=== PATIENT | male | born 1955 | race African-American/Black ===

== ENCOUNTER 2019-03-10 14:59 | Inpatient (IN) ==
[2019-03-10] MEDS ORDERED: LEVALBUTEROL HCL 1.25 MG/3 ML NEB NEB STA (15:37)
[2019-03-10 16:09] LABS: Basophils # (auto) 0.03 K/uL (0-0.2); Basophils % (auto) 0.5 %; Eosinophils # (auto) 0.19 K/uL (0-0.5); Eosinophils % (auto) 3.4 %; Hematocrit (blood only) 27.5 % (42-52); Hemoglobin 8.2 g/dL (14.0-18.0); Immature Granulocytes # (auto) 0.01 K/uL (0.00-0.02); Immature Granulocytes % (auto) 0.2 %; Lymphocytes # (auto) 1.37 K/uL (1.2-3.4); Lymphocytes % (auto) 24.4 %; Mean Corpuscular Hemoglobin 23.3 pg (25-34); Mean Corpuscular Hgb Conc 29.8 g/dL (32-36); Mean Corpuscular Volume 78.1 fL (80-100); Mean Platelet Volume 9.7 fL (7.4-10.4); Monocytes % (auto) 8.9 %; Neutrophils # (auto) 3.52 K/uL (1.4-6.5); Neutrophils % (auto) 62.6 %; Platelet Count 226 K/uL (130-400); RDW Coefficient of Variation 15.6 % (11.5-14.5); RDW Standard Deviation 45.1 fL (36.4-46.3); Red Blood Count 3.52 M/uL (4.7-6.1); White Blood Count 5.62 K/uL (4.8-10.8)
--- NOTE | 2019-03-10 16:15 | XRay Report ---
XR chest 1V portable CLINICAL HISTORY: 63 years-old Male presenting with SOB. TECHNIQUE: Portable upright AP view of the chest was obtained. COMPARISON: None. FINDINGS: Atherosclerosis of the aortic arch. Cardiac silhouette enlarged. Mild pulmonary vascular prominence. Interstitial prominence with suggestion of interlobular septal thickening. Bibasilar opacities greate r on the left. It is difficult to exclude left hemidiaphragm elevation as a potential cause for this appearance on the left. No large effusion or pneumothorax. IMPRESSION: 1. Cardiomegaly with volume overload and congestive change. Developing pulmonary edema suspected. 2. Opacity at the left lung base could relate to edema, atelectasis, or left hemidiaphragm elevation . PA and lateral views may better demonstrate this abnormality. 3. 4. 5. Electronically signed by: Dionte Saha M.D. 6. 03/10/2019 4:13 PM
[2019-03-10 16:23] LABS: Partial Thromboplastin Ratio 0.9; Partial Thromboplastin Time 25.2 Seconds (21.0-31.0); Prothrombin Time 10.3 Seconds (9.0-12.0)
[2019-03-10 16:25] LABS: Alanine Aminotransferase 29 U/L (12-78); Albumin Level 3.4 gm/dl (3.4-5.0); Aspartate Aminotransferase 17 U/L (15-37); BUN Creatinine Ratio 14.4 (10-20); Blood Urea Nitrogen 18 mg/dl (7-18); Calcium 8.9 mg/dl (8.5-10.1); Carbon Dioxide 27 mmol/L (21-32); Chloride 107 mmol/L (98-107); Creatinine Clr Calc Pharmacy 82.2 ml/min; Est GFR (African American) 70.4; Est GFR (Non-African American) 60.7; Glucose 117 mg/dl (70-99); Potassium 3.9 mmol/L (3.5-5.1); Sodium 139 mmol/L (136-145)
[2019-03-10 16:30] LABS: Albumin Globulin Ratio 0.8 (0.9-2); Alkaline Phosphatase 68 U/L (45-117); Bilirubin,Total 0.3 mg/dl (0.2-1); Globulin 4.4 gm/dl (2.5-4.0); Total Protein 7.8 gm/dl (6.4-8.2); Troponin I < 0.015 ng/ml (0-0.045)
[2019-03-10] MEDS ORDERED: LABETALOL HCL IV 5 MG/ML 20ML IV STA (17:03)
[2019-03-10 17:11] LABS: NT Pro B Type Natriuretic Pept 96 pg/ml (0-900)
[2019-03-10] MEDS ORDERED: PANTOprazole 80 MG in DEXTROSE 5% 100 ML IV SCH (17:15)
[2019-03-10] MEDS ORDERED: METOPROLOL TARTRATE 1 MG/ML VIAL IV ONE (17:29)
[2019-03-10] MEDS ORDERED: METOPROLOL TARTRATE 1 MG/ML VIAL IV STA (17:29)
[2019-03-10] MEDS ORDERED: SODIUM CHLORIDE 0.9% 1000ML 500 ML IV ONE (17:29)
--- NOTE | 2019-03-10 18:22 | Emergency Department Note ---
Entered by Meghann Disla acting as a scribe for Jl Jacome MD History of Present Illness General Chief complaint: Shortness of Breath/Dyspnea Stated complaint: SOB COUGH CHEST TIGHTNESS Time Seen by Provider: 03/10/19 15:27 Source: patient Mode of arrival: other (custodial guards ) History of Present Illness Provider complaint: shortness of breath Onset (ago): month(s) 2 Location: chest Pain Consistency: + other (worsening ) Quality: + other ("tightness") Relieved By: + other (inhaler ) Exacerbated By: + movement Associated symptoms: + cough The patient is a 63 year old male with a PMHX of 3 heart attacks, 3 strokes, and shortness of breath, who presents to the ED with complaints of a worsening of shortness of breath for 2-3 months now. The patient states that it feels a "tightness in his throat." The patient states that he has a cough that produces phlegm. The patient states that he recently stopped smoking. He states that his shortness of breath is exacerbated by movement. The patient states that he has never been told that he is anemic. He states that he has never been told that he has COPD or asthma. He states that he was given an inhaler and finds slight relief. The patient also states that his heart feels like it is "jumping around in his chest." The patient states that his bowel movements are normal. The pa tient denies using oxygen. The patient denies a history of a blood clot in his lungs or legs. The patient states that about 1 year ago he had hematuria and they took an US with no conclusive results. He states that he is not sure if there has been bleeding anywhere else in his GI tract. The patients chart states that the patient was sent here from [facility] s medical team for worsening shortness of breath and a cough for 2-3 months now. The chart states that the patient has a history of 3 heart attacks and 3 strokes. The patients Hemoglobin was 8.8 on a recent test. Home Medications Home Medications Medication Instructions Recorded Confirmed Type aspirin [Aspir-81] 81 mg PO DAILY 03/10/19 03/10/19 History azelastine 2 spray INTRANASAL BID 03/10/19 03/10/19 History cetirizine 10 mg PO DAILY 03/10/19 03/10/19 History cholecalciferol (vitamin D3) 400 unit PO DAILY 03/10/19 03/10/19 History [Vitamin D3] diltiazem HCl 240 mg PO DAILY 03/10/19 03/10/19 History guaifenesin [Mucosa] 400 mg PO BID PRN 03/10/19 03/10/19 History levalbuterol tartrate [Xopenex HFA] 1 puff INHALATION Q6H PRN 03/10/19 03/10/19 History omeprazole 20 mg PO DAILY 03/10/19 03/10/19 History pentoxifylline 400 mg PO TID 03/10/19 03/10/19 History pravastatin 20 mg PO HS 03/10/19 03/10/19 History Allergies Allergy/AdvReac Type Severity Reaction Status Date / Time No Known Allergies Allergy Unverified 03/10/19 16:11 Past Med/Surg History Medical History GERD (gastroesophageal reflux disease) (Chronic) Peripheral arterial disease (Chronic) Cerebrovascular disease (Chronic) Coronary artery disease (Chronic) Hypertension (Chronic) GERD (gastroesophageal reflux disease) (Chronic) Hypertension (Chronic) WA (myocardial infarction) (Chronic) Pt reports 3 WA's, but no cardiac cath or revascularization. Stroke (Chronic) Surgical History Status post hernia repair Family History Mother Hypertension Diabetes Sister Diabetes Sister Diabetes Other No significant family history Social History Beliefs That Will Affect Care: None and Gnosticist Gnosticist Beliefs: Mandaeism current occupational status: other current occupation: custodial Feels Safe at Home: Yes Smoking Status: Former smoker Hx Alcohol Use: No Hx Substance Use: No Review of Systems See HPI for pertinent positives & negatives. and A total of 10 systems reviewed and were otherwise negative Physical Exam Vital Signs Vital Signs - 24 hr 03/10/19 15:05 03/10/19 15:50 03/10/19 16:00 Temperature 36.8 C Temperature Source Oral Sepsis Recent Fever Within 48 Hours No Sepsis New/Unexplained Change in Mental Status No Sepsis Action Taken by Nursing No Action Required Pulse Rate 55 L Pulse Rate [Left Finger] 81 Pulse Rate from SpO2 Sensor Pulse Rhythm [Left Finger] Pulse Strength [Left Finger] Respiratory Rate 20 16 Respiratory Effort / Characteristics Non-Labored Spontaneous Respiratory Depth Respiratory Pattern Blood Pressure 191/96 H Blood Pressure [Right Arm] Blood Pressure Mean 127 Blood Pressure Mean [Right Arm] Blood Pressure Position [Right Arm] Pulse Oximetry 99 95 Oxygen Delivery Method Room Air Room Air Room Air 03/10/19 16:05 03/10/19 16:30 03/10/19 17:00 Temperature Temperature Source Sepsis Recent Fever Within 48 Hours Sepsis New/Unexplained Change in Mental Status Sepsis Action Taken by Nursing Pulse Rate 103 H 102 H Pulse Rate [Left Finger] 92 H Pulse Rate from SpO2 Sensor 101 H 97 H Pulse Rhythm [Left Finger] Regular Pulse Strength [Left Finger] Normal Respiratory Rate 20 20 18 Respiratory Effort / Characteristics Non-Labored Spontaneous Respiratory Depth Normal Respiratory Pattern Regular Blood Pressure 170/100 H 163/126 H Blood Pressure [Right Arm] 162/95 H Blood Pressure Mean 123 138 Blood Pressure Mean [Right Arm] 117 Blood Pressure Position [Right Arm] Sitting Pulse Oximetry 98 98 93 Oxygen Delivery Method Room Air 03/10/19 17:03 03/10/19 17:23 03/10/19 17:30 Temperature Temperature Source Sepsis Recent Fever Within 48 Hours Sepsis New/Unexplained Change in Mental Status Sepsis Action Taken by Nursing Pulse Rate 89 134 H 132 H Pulse Rate [Left Finger] Pulse Rate from SpO2 Sensor 91 H 134 H 133 H Pulse Rhythm [Left Finger] Pulse Strength [Left Finger] Respiratory Rate 23 16 24 Respiratory Effort / Characteristics Respiratory Depth Respiratory Pattern Blood Pressure 181/104 H 133/95 160/110 H Blood Pressure [Right Arm] Blood Pressure Mean 129 107 126 Blood Pressure Mean [Right Arm] Blood Pressure Position [Right Arm] Pulse Oximetry 98 97 97 Oxygen Delivery Method 03/10/19 17:33 03/10/19 17:47 Temperature Temperature Source Sepsis Recent Fever Within 48 Hours Sepsis New/Unexplained Change in Mental Status Sepsis Action Taken by Nursing Pulse Rate 133 H 76 Pulse Rate [Left Finger] Pulse Rate from SpO2 Sensor 77 Pulse Rhythm [Left Finger] Pulse Strength [Left Finger] Respiratory Rate 19 Respiratory Effort / Characteristics Respiratory Depth Respiratory Pattern Blood Pressure 160/110 H 170/88 H Blood Pressure [Right Arm] Blood Pressure Mean 115 Blood Pressure Mean [Right Arm] Blood Pressure Position [Right Arm] Pulse Oximetry 97 Oxygen Delivery Method GENERAL: Patient is in no acute distress. HEENT: No acute trauma, normocephalic atraumatic, mucous membranes moist, no nasal congestion, no scleral icterus. NECK: No stridor, no adenopathy, no meningismus, trachea is midline. LUNGS: Diminished breaths sounds bilaterally, equal breath sounds, no respiratory distress, no wheezing or rhonchi. HEART: Irregular rhythm, mildly tachycardic, has a 2/6 systolic murmur heard best at the right sternal border. ABDOMEN: Soft, nontender, bowel sounds positive, no hernias, no peritonitis. EXTREMITIES: No cyanosis or edema, full range of motion of all the joints without pain or difficulty, no signs for acute trauma. NEUROLOGIC: Oriented x 3, no acute motor or sensory deficits, no focal weakness. SKIN: No rash, no jaundice, no diaphoresis. Rectal: Dark almost black stool, heme positive. Course 1533: Past medical records reviewed. The patient was evaluated in room B6. A complete history and physical exam was performed. 1657: I reevaluated the patient at this time and he is resting comfortably. I performed a rectal exam on the patient. 1729: I reevaluated the patient at this time and he verbalized that he felt like his heart was racing. I ordered a repeat EKG on the patient that showed he was in SVT. 1742: I discussed the patient's case with Elvia Denton. She informed me that Dr. Luna, [facility], agreed to evaluate the patient for further management. 1751: I reevaluated the patient at this time and his SVT had broken. I updated him on his treatment plan. He verbally agreed and understood. Consultations Consultation #1: I discussed the patient's case with Elvia Denton. She informed me that Dr. Luna, [facility], agreed to evaluate the patient for further management. Time: 17:42 Administered Medications Pantoprazole Sodium 40 mg/ (Dextrose) 100 mls @ 20 mls/hr IV Q5H [facility] Stop: 04/09/19 17:29 Last Admin: 03/10/19 18:46 Dose: 20 mls/hr Documented by: [id number] Discontinued Medications Pantoprazole Sodium 80 mg/ (Dextrose) 120 mls @ 480 mls/hr IV TODAY@1715 PRABHJOT Stop: 03/10/19 17:29 Last Infusion: 03/10/19 18:47 Dose: 0 mls/hr Documented by: [id number] Admin: 03/10/19 18:23 Dose: 480 mls/hr Documented by: [id number] Sodium Chloride (Nss 1000ml) 500 mls @ 999 mls/hr IV .Q31M ONE Stop: 03/10/19 17:59 Last Infusion: 03/10/19 18:46 Dose: 0 mls/hr Documented by: [id number] Admin: 03/10/19 17:33 Dose: 999 mls/hr Documented by: [id number] Labetalol HCl (Normodyne) 10 mg IV NOW STA Stop: 03/10/19 17:04 Last Admin: 03/10/19 17:06 Dose: 10 mg Documented by: [id number] Cosigned by: [id number] Levalbuterol HCl (Xopenex 1.25mg/3ml Neb) 1.25 mg NEB NOW STA Stop: 03/10/19 15:38 Last Admin: 03/10/19 15:49 Dose: 1.25 mg Documented by: [id number] Metoprolol Tartrate (Lopressor) Confirm Administered Dose 5 mg IV .STK-MED ONE Stop: 03/10/19 17:30 Last Admin: 03/10/19 18:23 Dose: Not Given Documented by: [id number] Metoprolol Tartrate (Lopressor) 5 mg IV NOW STA Stop: 03/10/19 17:30 Last Admin: 03/10/19 17:33 Dose: 5 mg Documented by: [id number] Medical Decision Making Differential Diagnosis Differential diagnoses include but are not limited to angina, WA, CHF, pneumonia, bronchitis, COPD, anemia, electrolyte imbalance, PE. Medical Records Attestation: I reviewed the patient's medical records. Home Medications Current Medication List: was personally reviewed by me Laboratory Data Attestation: I reviewed the patient's lab results. Result diagrams: 03/10/19 15:47 03/10/19 15:47 Lab Results 03/10/19 03/10/19 03/10/19 Range/Units 15:47 15:47 15:47 WBC 5.62 (4.8-10.8) K/uL RBC 3.52 L (4.7-6.1) M/uL Hgb 8.2 L (14.0-18.0) g/dL Hct 27.5 L (42-52) % MCV 78.1 L (80-100) fL MCH 23.3 L (25-34) pg MCHC 29.8 L (32-36) g/dL RDW Std Deviation 45.1 (36.4-46.3) fL RDW Coeff of Ruba 15.6 H (11.5-14.5) % Plt Count 226 (130-400) K/uL MPV 9.7 (7.4-10.4) fL Immature Gran % (Auto) 0.2 % Neut % (Auto) 62.6 % Lymph % (Auto) 24.4 % [place] % (Auto) 8.9 % Eos % (Auto) 3.4 % Baso % (Auto) 0.5 % Immature Gran # (Auto) 0.01 (0.00-0.02) K/uL Neut # (Auto) 3.52 (1.4-6.5) K/uL Lymph # (Auto) 1.37 (1.2-3.4) K/uL [place] # (Auto) 0.50 (0.11-0.59) K/uL Eos # (Auto) 0.19 (0-0.5) K/uL Baso # (Auto) 0.03 (0-0.2) K/uL PT 10.3 (9.0-12.0) Seconds INR 1.0 (0.9-1.1) APTT 25.2 (21.0-31.0) Seconds PTT Ratio 0.9 Sodium 139 (136-145) mmol/L Potassium 3.9 (3.5-5.1) mmol/L Chloride 107 (98-107) mmol/L Carbon Dioxide 27 (21-32) mmol/L Anion Gap 5.0 (3-11) BUN 18 (7-18) mg/dl Creatinine 1.26 (0.6-1.4) mg/dl Est Cr Clr Drug Dosing 82.2 ml/min Est GFR ( Amer) 70.4 Est GFR (Non-Af Amer) 60.7 BUN/Creatinine Ratio 14.4 (10-20) Glucose 117 H (70-99) mg/dl Calcium 8.9 (8.5-10.1) mg/dl Magnesium 2.0 (1.8-2.4) mg/dl Total Bilirubin 0.3 (0.2-1) mg/dl AST 17 (15-37) U/L ALT 29 (12-78) U/L Alkaline Phosphatase 68 (45-117) U/L Troponin I < 0.015 (0-0.045) ng/ml NT-Pro-B Natriuret Pep 96 (0-900) pg/ml Total Protein 7.8 (6.4-8.2) gm/dl Albumin 3.4 (3.4-5.0) gm/dl Globulin 4.4 H (2.5-4.0) gm/dl Albumin/Globulin Ratio 0.8 L (0.9-2) Imaging Data Radiologist's Impression: Radiology results as stated below per my review and the radiologist's interpretation: XR chest 1V portable CLINICAL HISTORY: 63 years-old Male presenting with SOB. TECHNIQUE: Portable upright AP view of the chest was obtained. COMPARISON: None. FINDINGS: Atherosclerosis of the aortic arch. Cardiac silhouette enlarged. Mild pulmonary vascular prominence. Interstitial prominence with suggestion of interlobular septal thickening. Bibasilar opacities greater on the left. It is difficult to exclude left hemidiaphragm elevation as a potential cause for this appearance on the left. No large effusion or pneumothorax. IMPRESSION: 1. Cardiomegaly with volume overload and congestive change. Developing pulmonary edema suspected. 2. Opacity at the left lung base could relate to edema, atelectasis, or left hemidiaphragm elevation. PA and lateral views may better demonstrate this abnormality. 5. Electronically signed by: Dionte Saha M.D. 6. 03/10/2019 4:13 PM ECG Data Attestation: I personally reviewed and interpreted this ECG as follows: Indication: SOB/dyspnea Rate (beats per minute): 103 Rhythm: sinus tachycardia Findings: + other (QTc 416), + nonspecific-ST abn (diffuse and nonspecific) and + PAC; no ST elevation and no acute ischemic change Comparison ECG Date: from (2nd EKG 03/10/19 at 17:30) Change: the following changes noted (SVT) Additional Comments: Repeat EKG 03/10/19 at 17:30: SVT, rate of 135, QTc of 477, no st elevation, no acute ischemic change, nonspe cific ST change Blood Pressure Blood Pressure Findings: Elevated blood pressure Blood Pressure Disposition: further management by hospitalist MDM Narrative There is no leukocytosis. The hemoglobin is low at 8.2, a rectal exam was performed, stool was dark in color and heme positive. There was a normal platelet count. No coagulopathy. No significant electrolyte abnormality or kidney failure. No worrisome liver enzyme elevation. EKG showed a sinus rhythm with PACs. Cardiac enzyme testing x1 was not consistent with acute cardiac injury. Chest x-ray shows what appears to be some atelectasis on the left. There was no true pneumonia. No pneumothorax. No concerning CHF. BNP was not elevated making CHF less likely. The patient was given IV labetalol for a higher blood pressure. He received a Xopenex neb. He was placed on a Protonix drip after an IV Protonix bolus. During the patient's stay, he complained of tachycardia/palpitations. A repeat EKG was performed showing an SVT in the 130s. Patient received a 500 cc saline bolus and 5 mg of IV Lopressor. This broke the SVT. Patient does require a hospital stay. He has a GI bleed. He is anemic. He may require a blood transfusion if the hemoglobin drops any further. He did have a bout of SVT. I did speak to the patient and the guards, case management has been involved. The on-call hospitalist was consulted. Impression & Plan SOB (shortness of breath), Weakness, Anemia, GI bleed, Hypertension, SVT (supraventricular tachycardia) Critical Care Time Critical Care Time: Yes Total Critical Care Time: 42 I have personally spent 42 minutes of critical care time in the direct management of this patient. This includes bedside care, interpretation of diagnostic studies, and testing, discussion with consultants, patient, and family members, and other required patient management activities. This 42 minutes is in excess of all separately billable procedures. Discharge Plan Visit Data *Final* Discharge Date/Time: 03/10/19 18:52 Chief Complaint: Shortness of Breath/Dyspnea Stated Complaint: SOB COUGH CHEST TIGHTNESS ED Provider: Jl Jacome Discharge Problem: SOB (shortness of breath), Weakness, Anemia, GI bleed, Hypertension, SVT (supraventricular tachycardia) Patient Disposition: Admitted As Inpatient Discharge Instructions Interventions: ED Discharge Assessment Last Done: 03/10/19 18:52 Discharge Problem: Anemia Qualifiers: Anemia type: unspecified type Qualified Code(s): D64.9 - Anemia, unspecified GI bleed Qualifiers: GI bleed type/associated pathology: unspecified gastrointestinal hemorrhage type Qualified Code(s): K92.2 - Gastrointestinal hemorrhage, unspecified Hypertension Qualifiers: Hypertension type: unspecified Qualified Code(s): I10 - Essential (primary) hypertension The scribe's documentation has been prepared under my direction and personally reviewed by me in its entirety. I confirm that the note above accurately reflects all work, treatment, procedures, and medical decision making performed by me.
[2019-03-10] MEDS: PANTOprazole 40 MG in DEXTROSE 5% 100 ML IV SCH ×2 (18:46→23:56)
--- NOTE | 2019-03-10 19:01 | History & Physical Report ---
Date of Service March 10, 2019 Assessment & Plan (1) Dyspnea: Patient reports increasing dyspnea on exertion over the past 2 months. There may be several contributing factors. He reports a history of previous myocardial infarctions; may be having myocardial ischemia with exertion. Chest x-ray shows some pulmonary vascular congestion; possible CHF. Blood pressure in ED as high as 160/140; may have hypertensive heart disease. Experiences frequent tachypalpitations and was noted to have SVT in the ED. Former heavy smoker, may have COPD. Abnormal chest x-ray consistent with hiatal hernia, but need to rule out other pathology. Anemia, as well, may be contributing to symptoms. Check echocardiogram and pro-BNP. Consult Cardiology. Resume diltiazem for better control of hypertension and arrhythmias. Check PA lateral chest films when able. Check PFTs when able. Management of anemia as discussed below. (2) Abnormal chest xray: Portable chest x-ray shows a left retrocardiac density, possible hiatal hernia. Check repeat imaging with PA and lateral films once medical status has stabilized. (3) SVT (supraventricular tachycardia): Developed narrow complex tachyarrhythmia in ED consistent with SVT. Converted to normal sinus rhythm after administration of intravenous metoprolol. Serum potassium 3.9. Serum magnesium 2.0. Patient reports frequent tachypalpitations. Prescribed diltiazem, but not recently taking it. Resume diltiazem. Check TSH. Cardiac monitoring. (4) GI bleed: Stools heme positive in ED. Hemoglobin 8.2 with an MCV of 78. Microcytosis suggests chronic GI blood loss. Takes aspirin on a regular basis. Hold aspirin. IV pantoprazole. Consult GI. Follow H&H. (5) Anemia: Hemoglobin 8.2 with an MCV of 78. Takes aspirin on a regular basis. May have both acute blood loss anemia and chronic GI blood loss. No indication for transfusion per current guidelines, but consider if hemoglobin falls below 7-8. Monitor H&H. Check iron studies. (6) Coronary artery disease: Pt reports 3 MIs in the past, but never had a cardiac catheterization or revascularization. Obtain old records if possible. Hold aspirin until active GI bleeding has resolved. Resume diltiazem for ischemic heart disease, hypertension, and tachyarrhythmias. Continue statin. (7) Cerebrovascular disease: Patient reports history of 2 strokes in the past. No residual deficits. Details of events not available. Obtain old records if possible. Hold aspirin until GI bleed resolved. Continue statin. (8) Hypertension: Has been prescribed diltiazem, but not taking it recently because he felt that blood pressures running too low. Resume diltiazem, but with a modified schedule of diltiazem CD 120 mg BID. Follow and titrate therapy. (9) Peripheral arterial disease: Hold aspirin and pentoxifylline until GI bleed has resolved. (10) GERD (gastroesophageal reflux disease): Continue PPI. (11) DVT prophylaxis: No anticoagulants because of GI bleeding. SCDs. Ambulate as able. (12) Discharge planning issues: Anticipated return to [facility] under the care of the medical team there. Need background information from previous hospitalizations at [facility] in [place]. Old records to be requested. History of Present Illness Chief Complaint: shortness of breath Primary Care Provider: [facility] 63 YO male who is incarcerated at [facility]. History of 3 FL's per patient's history. Details not available. First 2 events were managed at [facility] about 10 years ago. Third episode was about 2 years ago, managed at the residential. Patient states that he never had a cardiac cath or revascularization. History of stroke in the past. Details not available. Other medical problems include hypertension, peripheral vascular disease, GERD. Former 2 PPD smoker. Experiencing dyspnea on exertion over past 2 months, recently worse. Sometimes dyspnea associated with mild substernal chest pain; sometimes with palpitations. Occasional cough, sometimes productive of white sputum. Has had intermittent palpitations for some time. Prescribed diltiazem, but felt that current dose of 240 mg daily was too much and he has not taken it for some time. Takes aspirin 81 mg daily because of history of ischemic heart disease and stroke. Takes a couple extra aspirins when he experiences palpitations which seems to help. Chest x-ray at [facility] on 03/06/19 showed normal cardiac silhouette, pulmonary vascular congestion, retrocardiac density felt to be consistent with hiatal hernia. Brought to ED today because of worsening dyspnea on exertion. No chest pain. No fever. Cough unchanged. Cardiac rhythm in ED initially was sinus tachycardia. BP was elevated. Patient received IV labetalol. Subsequently developed narrow complex tachycardia @ 130 / min consistent with SVT. Received metoprolol 5 mg IV and converted to sinus rhythm. Allergies Allergy/AdvReac Type Severity Reaction Status Date / Time No Known Allergies Allergy Unverified 03/10/19 16:11 Home Medications Home Medications Medication Instructions Recorded Confirmed Type aspirin [Aspir-81] 81 mg PO DAILY 03/10/19 03/10/19 History azelastine 2 spray INTRANASAL BID 03/10/19 03/10/19 History cetirizine 10 mg PO DAILY 03/10/19 03/10/19 History cholecalciferol (vitamin D3) 400 unit PO DAILY 03/10/19 03/10/19 History [Vitamin D3] diltiazem HCl 240 mg PO DAILY 03/10/19 03/10/19 History guaifenesin [Mucosa] 400 mg PO BID PRN 03/10/19 03/10/19 History levalbuterol tartrate [Xopenex HFA] 1 puff INHALATION Q6H PRN 03/10/19 03/10/19 History omeprazole 20 mg PO DAILY 03/10/19 03/10/19 History pentoxifylline 400 mg PO TID 03/10/19 03/10/19 History pravastatin 20 mg PO HS 03/10/19 03/10/19 History Past Med/Surg History Medical History GERD (gastroesophageal reflux disease) (Chronic) Hypertension (Chronic) FL (myocardial infarction) (Chronic) Pt reports 3 FL's, but no cardiac cath or revascularization. Stroke (Chronic) Surgical History Status post hernia repair Family History Mother Hypertension Diabetes Sister Diabetes Sister Diabetes Other No significant family history Social History current occupational status: other current occupation: residential Feels Safe at Home: Yes Smoking Status: Former smoker Review of Systems Constitutional: + weight gain; no fever and no weight loss Ear, Nose, Mouth, Throat: no sore throat Respiratory: as per Subjective / HPI Cardiovascular: as per Subjective / HPI Gastrointestinal: no nausea, no vomiting, no constipation, no diarrhea/loose stools, no blood in stools and no melena Musculoskeletal: no joint pain and no myalgia Integumentary: healed ulcer right ankle Neurologic: no headache(s) Endocrine: no polydipsia and no polyuria Hematologic / Lymphatic: no easy bleeding, no easy bruising and no lymphadenopathy Physical Exam Constitutional: WD/WN, vitals as above + obese; no acute distress Eyes: PERRL, conjunctivae normal, anicteric sclerae ENMT: external ear and nose normal, oropharynx normal Mouth: + dentition abnormality (poor dentition) Neck: trachea midline, no thyromegaly Respiratory: normal respiratory effort, lungs clear to auscultation no respiratory distress Auscultation: lungs clear to auscultation bilaterally Cardiovascular: Rate/Rhythm: regular rate and regular rhythm (slightly irregular) Heart Sounds: no gallop, no murmur and no cardiac rub Vessels: + JVD Extremities: no calf tenderness and no edema Gastrointestinal (Abdomen): normal bowel sounds, soft, nontender, no hepatosplenomegaly ((exam limited due to body habitus) Musculoskeletal: Head/Neck/Chest: neck supple Extremities: strength 5/5 throughout; no cyanosis and no clubbing Skin: no rashes, warm and dry Neurologic: PERRL, EOMI no facial palsy no dysarthria or aphasia Psychiatric: Orientation: alert and oriented x 3 Affect: euthymic affect Lymphatic: no cervical lymphadenopathy Results & Data Vital Signs (Past 12 Hours) Vital Signs Temp Pulse Pulse Resp BP BP Pulse Ox 03/10/19 18:30 77 24 171/109 H 98 03/10/19 18:01 95 H 30 H 160/140 H 91 03/10/19 17:47 76 19 170/88 H 97 03/10/19 17:33 133 H 160/110 H 03/10/19 17:30 132 H 24 160/110 H 97 03/10/19 17:23 134 H 16 133/95 97 03/10/19 17:03 89 23 181/104 H 98 03/10/19 17:00 102 H 18 163/126 H 93 03/10/19 16:30 103 H 20 170/100 H 98 03/10/19 16:05 92 H 20 162/95 H 98 03/10/19 15:50 81 16 95 03/10/19 15:05 36.8 C 55 L 20 191/96 H 99 Laboratory Results Laboratory Results - last 24 hr 03/10/19 03/10/19 03/10/19 15:47 15:47 15:47 WBC 5.62 RBC 3.52 L Hgb 8.2 L Hct 27.5 L MCV 78.1 L MCH 23.3 L MCHC 29.8 L RDW Std Deviation 45.1 RDW Coeff of Ruba 15.6 H Plt Count 226 MPV 9.7 Immature Gran % (Auto) 0.2 Neut % (Auto) 62.6 Lymph % (Auto) 24.4 Edgar % (Auto) 8.9 Eos % (Auto) 3.4 Baso % (Auto) 0.5 Immature Gran # (Auto) 0.01 Neut # (Auto) 3.52 Lymph # (Auto) 1.37 Edgar # (Auto) 0.50 Eos # (Auto) 0.19 Baso # (Auto) 0.03 PT 10.3 INR 1.0 APTT 25.2 PTT Ratio 0.9 Sodium 139 Potassium 3.9 Chloride 107 Carbon Dioxide 27 Anion Gap 5.0 BUN 18 Creatinine 1.26 Est Cr Clr Drug Dosing 82.2 Est GFR ( Amer) 70.4 Est GFR (Non-Af Amer) 60.7 BUN/Creatinine Ratio 14.4 Glucose 117 H Calcium 8.9 Magnesium 2.0 Total Bilirubin 0.3 AST 17 ALT 29 Alkaline Phosphatase 68 Troponin I < 0.015 NT-Pro-B Natriuret Pep 96 Total Protein 7.8 Albumin 3.4 Globulin 4.4 H Albumin/Globulin Ratio 0.8 L Blood Type Antibody Screen 03/10/19 15:47 WBC RBC Hgb Hct MCV MCH MCHC RDW Std Deviation RDW Coeff of Ruba Plt Count MPV Immature Gran % (Auto) Neut % (Auto) Lymph % (Auto) Edgar % (Auto) Eos % (Auto) Baso % (Auto) Immature Gran # (Auto) Neut # (Auto) Lymph # (Auto) Edgar # (Auto) Eos # (Auto) Baso # (Auto) PT INR APTT PTT Ratio Sodium Potassium Chloride Carbon Dioxide Anion Gap BUN Creatinine Est Cr Clr Drug Dosing Est GFR ( Amer) Est GFR (Non-Af Amer) BUN/Creatinine Ratio Glucose Calcium Magnesium Total Bilirubin AST ALT Alkaline Phosphatase Troponin I NT-Pro-B Natriuret Pep Total Protein Albumin Globulin Albumin/Globulin Ratio Blood Type Pending Antibody Screen Pending Diagnostic Findings Portable chest x-ray reviewed by the undersigned and formally interpreted by Radiology: FINDINGS: Atherosclerosis of the aortic arch. Cardiac silhouette enlarged. Mild pulmonary vascular prominence. Interstitial prominence with suggestion of interlobular septal thickening. Bibasilar opacities greater on the left. It is difficult to exclude left hemidiaphragm elevation as a potential cause for this appearance on the left. No large effusion or pneumothorax. IMPRESSION: 1. Cardiomegaly with volume overload and congestive change. Developing pulmonary edema suspected. 2. Opacity at the left lung base could relate to edema, atelectasis, or left hemidiaphragm elevation. PA and lateral views may better demonstrate this abnormality. Electronically signed by: Dionte Saha M.D. 03/10/2019 4:13 PM ECG Additional Comments: EKG performed at [address] 103 / min, PAC's, baseline artifact, no acute ST or T-wave abnormalities. EKG performed at 1729 reviewed and showed narrow complex tachycardia at 135 / min, no acute ST or T-wave abnormalities. Code Status & VTE Plan VTE Prophylaxis Plan VTE Prophylaxis will be ordered: Yes (1) GI bleed GI bleed type/associated pathology: unspecified gastrointestinal hemorrhage type Qualified Code(s): K92.2 - Gastrointestinal hemorrhage, unspecified (2) Hypertension Hypertension type: unspecified Qualified Code(s): I10 - Essential (primary) hypertension (3) Anemia Anemia type: unspecified type Qualified Code(s): D64.9 - Anemia, unspecified
[2019-03-10] MEDS ORDERED: NITROGLYCERIN SL 0.4 MG/TAB TAB SL PRN (20:04)
[2019-03-10] MEDS ORDERED: ONDANSETRON INJ 2 MG/ML 2 ML VIAL IV PRN (20:04)
[2019-03-10] MEDS ORDERED: ACETAMINOPHEN 325 MG TAB PO PRN (20:04)
[2019-03-10] MEDS ORDERED: LABETALOL HCL IV 5 MG/ML 20ML IV PRN (20:04)
[2019-03-10] MEDS: dilTIAZem HCL 120 MG CAPCR PO SCH (22:24)
[2019-03-10] MEDS: PRAVASTATIN SOD 20 MG TAB PO SCH (22:25)
[2019-03-10] MEDS: NITROGLYCERIN 2% OINTMENT 30GM TUBE EXT SCH (23:57)
[2019-03-11] MEDS: PANTOprazole 40 MG in DEXTROSE 5% 100 ML IV SCH ×5 (05:22→20:31)
[2019-03-11] MEDS: NITROGLYCERIN 2% OINTMENT 30GM TUBE EXT SCH ×3 (05:24→17:51)
[2019-03-11 05:36] LABS: Hematocrit (blood only) 26.6 % (42-52); Hemoglobin 7.8 g/dL (14.0-18.0); Mean Corpuscular Hgb Conc 29.3 g/dL (32-36); Mean Corpuscular Volume 78.5 fL (80-100); Mean Platelet Volume 9.7 fL (7.4-10.4); Platelet Count 225 K/uL (130-400); RDW Coefficient of Variation 15.7 % (11.5-14.5); RDW Standard Deviation 45.1 fL (36.4-46.3); Red Blood Count 3.39 M/uL (4.7-6.1)
[2019-03-11] MEDS ORDERED: FUROSEMIDE 20 MG in SYRINGE 0 ML IV ONE (05:36)
[2019-03-11] MEDS ORDERED: SODIUM CHLORIDE 0.9% 250 ML IV PRN ×2 (05:41→07:46)
[2019-03-11] MEDS ORDERED: FUROSEMIDE 40 MG/4 ML VIAL IV ONE (05:48)
[2019-03-11 06:12] LABS: Calcium 8.7 mg/dl (8.5-10.1); Creatinine Clr Calc Pharmacy 95.1 ml/min; Est GFR (African American) 83.9; Est GFR (Non-African American) 72.4; Potassium 4.2 mmol/L (3.5-5.1)
[2019-03-11 06:22] LABS: Thyroid Stimulating Hormone 2.36 uIu/ml (0.300-4.500)
--- NOTE | 2019-03-11 07:44 | Hospitalist Progress Note ---
Date of Service March 11, 2019 Subjective Made aware by RN of AM hemoglobin of 7.8. Patient complaining of S OB symptoms. AP Symptomatic anemia hx CAD Transfuse PRBC to maintain hemoglobin greater than 8. Patient currently hesitant to consent to blood transfusion given attendant risks. He requests for some time to think over it. Will relay to AM provider. Results & Data Vital Signs (Past 12 Hours) Vital Signs Temp Pulse Pulse Resp BP Pulse Ox 03/11/19 06:14 86 22 146/88 H 98 03/11/19 04:00 36.5 C 76 20 120/71 98 03/10/19 23:13 36.9 C 84 19 158/92 H 99
[2019-03-11] MEDS: dilTIAZem HCL 120 MG CAPCR PO SCH ×2 (09:01→20:06)
--- NOTE | 2019-03-11 10:46 | Cardiology Consultation ---
Date of Consultation March 11, 2019 Assessment & Plan (1) Anemia: (2) GI bleed: (3) SOB (shortness of breath): (4) GERD (gastroesophageal reflux disease): (5) Coronary artery disease: (6) Peripheral arterial disease: The patient's symptoms can certainly be the result of his anemia. I believe he should have a GI work-up. At this time he is refusing blood transfusions. His anemia should be worked up in regard to iron or vitamin deficiencies. He should be supplemented accordingly. He had an echocardiogram completed this morning which I will review. We will also try to get the records from [facility]. I plan no additional diagnostic studies at this time until his bleeding work-up is complete and his anemia is corrected. History of Present Illness Attending Physician: Sofia Murrell MD History of Present Illness This is a 63-year-old inmate who was transferred and admitted to the hospital with complaints of shortness of breath. His shortness of breath began and several weeks ago and he feels like they have progressed. He is not had any chest pain. The patient states that he has a history of coronary artery disease with previous heart attacks that were treated at [facility]. Those records are unavailable to us. After admission he is noted to have a hemoglobin of 7.8 with guaiac positive stools. Patient does have a history of a hiatal hernia. He does have an abnormal chest x-ray suggesting a large hiatal hernia. Cardiac troponins are negative thus far. EKG shows no acute changes. Allergies Allergy/AdvReac Type Severity Reaction Status Date / Time No Known Allergies Allergy Unverified 03/10/19 16:11 Home Medications Home Medications Medication Instructions Recorded Confirmed Type aspirin [Aspir-81] 81 mg PO DAILY 03/10/19 03/10/19 History azelastine 2 spray INTRANASAL BID 03/10/19 03/10/19 History cetirizine 10 mg PO DAILY 03/10/19 03/10/19 History cholecalciferol (vitamin D3) 400 unit PO DAILY 03/10/19 03/10/19 History [Vitamin D3] diltiazem HCl 240 mg PO DAILY 03/10/19 03/10/19 History guaifenesin [Mucosa] 400 mg PO BID PRN 03/10/19 03/10/19 History levalbuterol tartrate [Xopenex HFA] 1 puff INHALATION Q6H PRN 03/10/19 03/10/19 History omeprazole 20 mg PO DAILY 03/10/19 03/10/19 History pentoxifylline 400 mg PO TID 03/10/19 03/10/19 History pravastatin 20 mg PO HS 03/10/19 03/10/19 History Patient History Medical History GERD (gastroesophageal reflux disease) (Chronic) Peripheral arterial disease (Chronic) Cerebrovascular disease (Chronic) Coronary artery disease (Chronic) Hypertension (Chronic) GERD (gastroesophageal reflux disease) (Chronic) Hypertension (Chronic) SC (myocardial infarction) (Chronic) Pt reports 3 SC's, but no cardiac cath or revascularization. Stroke (Chronic) Surgical History Status post hernia repair Family History Mother Hypertension Diabetes Sister Diabetes Sister Diabetes Other No significant family history Social History Beliefs That Will Affect Care: None and Restoration Restoration Beliefs: Hoahaoism current occupational status: other current occupation: retirement Feels Safe at Home: Yes Smoking Status: Former smoker Hx Alcohol Use: No Hx Substance Use: No Review of Systems Review of Systems: All systems reviewed & are unremarkable except as noted in HPI & below No additional information. Physical Exam Physical Exam: General: no acute distress and stated age Head: normocephalic, no masses, lesions, tenderness or abnormalities Eyes: conjunctiva are pink and non-injected, sclera clear Neck: supple, no adenopathy, no bruits, normal jugular venous pulse, no hepatojugular reflux Chest: normal shape and normal respiratory effort Lungs: clear to auscultation and percussion Cardiac Exam: - irregular rate & rhythm, no murmurs gallops or rubs - normal S1, normal S2 Pulses: 2(+) throughout Abdomen: abdomen soft, non-tender, no abnormal masses and no hepatosplenomegaly Musculoskeletal: no gait disturbance, no joint inflammation, no deforming arthritis Extremities: no edema and no cyanosis Neuro: grossly normal exam Results & Data Vital Signs (Past 12 Hours) Vital Signs Temp Pulse Pulse Pulse Resp BP Pulse Ox 03/11/19 08:38 36.5 C 62 16 150/58 H 94 03/11/19 08:20 76 03/11/19 06:14 86 22 146/88 H 98 03/11/19 04:00 36.5 C 76 20 120/71 98 03/10/19 23:13 36.9 C 84 19 158/92 H 99 (1) Anemia Anemia type: unspecified type Qualified Code(s): D64.9 - Anemia, unspecified (2) GI bleed GI bleed type/associated pathology: unspecified gastrointestinal hemorrhage type Qualified Code(s): K92.2 - Gastrointestinal hemorrhage, unspecified
--- NOTE | 2019-03-11 12:02 | Hospitalist Progress Note ---
Date of Service March 11, 2019 Assessment & Plan (1) Dyspnea: Present on admission with worsening SOB with exertion for the last few weeks Possible related to anemia vs cardiac etiology Chest x-ray showed cardiomegaly with volume overload and congestive change. Hgb dropped to 7.8 BNP negative and troponin negative Received Lasix IV on admission ECHO pending Cardiology on board Will repeat CXR in am Continue monitor closely (2) Abnormal chest xray: Portable chest x-ray shows a left retrocardiac density, possible hiatal hernia. Will get PA/LA CXR in am (3) SVT (supraventricular tachycardia): Developed narrow complex tachyarrhythmia in ED consistent with SVT. Received IV metoprolol in the ER and was back to NSR Tele monitor showed brief episode of bradycardia and tachycardia On Cardizem BID Will keep Mg above 2 and K above 4 cardiology on board Continue monitor in tele (4) GI bleed: (5) Anemia: Stools heme positive in ED. Hemoglobin dropped to 7.8 Microcytosis suggests chronic GI blood loss. Iron studies showed low iron level, low ferritin Continue to hold aspirin Continue IV pantoprazole. GI consult pending Continue monitor H/H Discussed with pt about blood transfusion if hgb continues to drop Pt said that he does not want any blood transfusion even if his hemoglobin drop below 7 He said that he will be ok with iron transfusion and supplement NPO for now (6) Coronary artery disease: Report that he had 3 MIs in the past that were managed in [place] (2 of 3 NM) Consent signed to request document from [place] Hold aspirin until active GI bleeding has resolved. Continue statin ECHO pending (7) Cerebrovascular disease: Patient reports history of 2 strokes in the past. No residual deficits. Hold aspirin until GI bleed resolved. Continue statin. Stable (8) Hypertension: BP slightly elevated Has been prescribed diltiazem, but not taking it recently because he felt that blood pressures running too low. Continue diltiazem CD 120 mg BID. Will consider to add amlodipine if BP not at goal (9) Peripheral arterial disease: Hold aspirin and pentoxifylline until GI bleed has resolved. (10) GERD (gastroesophageal reflux disease): Continue PPI. (11) DVT prophylaxis: No anticoagulants because of GI bleeding. SCDs. Ambulate as able. (12) Discharge planning issues: Anticipated return to [facility] under the care of the medical team there. Continue monitor in tele Subjective Pt was seen and examined Lying in bed with no distress with 2 guards at bedside Pt said that he feels hungry because he did not eat anything this morning He said that he does not want any blood transfusion if his hemoglobin continues to drop He said that he will be ok with iron transfusion I told him now his hgb is borderline and if he continues to drop he might need to get transfusion He understood the risks of refusing any blood transfusion Denies any chest pain, palpitation, dizziness and SOB Physical Exam Physical Exam: General- No acute distress Head- atraumatic Eyes- PERRL, EOMI, ENT- oropharynx clear Neck- supple, no JVD Lungs- clear to auscultation Heart- irregular rhythm; no murmur Abdomen- normal bowel sounds, soft, nontender Extremities- no calf tenderness Neuro- alert, oriented x 3; PERRL, EOMI; no facial palsy; no dysarthria Skin- warm & dry Results & Data Vital Signs (Past 12 Hours) Vital Signs Temp Pulse Pulse Pulse Resp BP Pulse Ox 03/11/19 08:38 36.5 C 62 16 150/58 H 94 03/11/19 08:20 76 03/11/19 06:14 86 22 146/88 H 98 03/11/19 04:00 36.5 C 76 20 120/71 98 (1) GI bleed GI bleed type/associated pathology: unspecified gastrointestinal hemorrhage type Qualified Code(s): K92.2 - Gastrointestinal hemorrhage, unspecified (2) Anemia Anemia type: unspecified type Qualified Code(s): D64.9 - Anemia, unspecified (3) Hypertension Hypertension type: unspecified Qualified Code(s): I10 - Essential (primary) hypertension
--- NOTE | 2019-03-11 15:07 | Gastrointestinal Consultation ---
Date of Consultation March 11, 2019 Assessment & Plan (1) GERD (gastroesophageal reflux disease): (2) Anemia: (3) GI bleed: Clear liquid diet today Bowel prep tonight NPO after midnight EGD and colonoscopy in the AM History of Present Illness Reason for Consultation: Anemia and Heme positive stool Attending Physician: Sofia Murrell MD History of Present Illness 63 yo male who presented to the ER yesterday with 2 month history of dyspnea on exertion. Upon arrival to the ER he was noted to have an 8.2/27.5 with microcytic indices, and had heme positive stool on LARA. He was seen by cardiology, and his symptoms were not felt to be secondary to Acute cardiac symptoms. He was placed on PPI gtt, and admitted to the PCU. He states that he does take Aspirin daily for cardiac prevention, but no other NSAID's. He also takes Omeprazole daily for chronic GERD, and states his symptoms are well controlled. He has never had an EGD or colonoscopy. At the time I saw him today, he was lying in bed, and had no complaints of abdominal pain, nausea, vomiting, diarrhea, hematemesis, melena or hematochezia. He states he is unsure as to whether any family members have a history of colon cancer. He has no further complaints. Allergies Allergy/AdvReac Type Severity Reaction Status Date / Time No Known Allergies Allergy Unverified 03/10/19 16:11 Home Medications Home Medications Medication Instructions Recorded Confirmed Type aspirin [Aspir-81] 81 mg PO DAILY 03/10/19 03/10/19 History azelastine 2 spray INTRANASAL BID 03/10/19 03/10/19 History cetirizine 10 mg PO DAILY 03/10/19 03/10/19 History cholecalciferol (vitamin D3) 400 unit PO DAILY 03/10/19 03/10/19 History [Vitamin D3] diltiazem HCl 240 mg PO DAILY 03/10/19 03/10/19 History guaifenesin [Mucosa] 400 mg PO BID PRN 03/10/19 03/10/19 History levalbuterol tartrate [Xopenex HFA] 1 puff INHALATION Q6H PRN 03/10/19 03/10/19 History omeprazole 20 mg PO DAILY 03/10/19 03/10/19 History pentoxifylline 400 mg PO TID 03/10/19 03/10/19 History pravastatin 20 mg PO HS 03/10/19 03/10/19 History Patient History Medical History GERD (gastroesophageal reflux disease) (Chronic) Peripheral arterial disease (Chronic) Cerebrovascular disease (Chronic) Coronary artery disease (Chronic) Hypertension (Chronic) GERD (gastroesophageal reflux disease) (Chronic) Hypertension (Chronic) [place] (myocardial infarction) (Chronic) Pt reports 3 NY's, but no cardiac cath or revascularization. Stroke (Chronic) Surgical History Status post hernia repair Family History Mother Hypertension Diabetes Sister Diabetes Sister Diabetes Other No significant family history Social History Beliefs That Will Affect Care: None and Baptist Baptist Beliefs: Yazidi current occupational status: other current occupation: group home Feels Safe at Home: Yes Smoking Status: Former smoker Hx Alcohol Use: No Hx Substance Use: No Review of Systems Review of Systems: All systems reviewed & are unremarkable except as noted in HPI & below Physical Exam Constitutional: WD/WN, vitals as above Eyes: PERRL, conjunctivae normal, anicteric sclerae ENMT: external ear and nose normal, oropharynx normal Neck: trachea midline, no thyromegaly Respiratory: normal respiratory effort, lungs clear to auscultation Cardiovascular: RRR, no murmur, no edema Gastrointestinal (Abdomen): normal bowel sounds, soft, nontender, no hepatosplenomegaly Skin: no rashes, warm and dry Psychiatric: A+Ox3, euthymic affect Results & Data Vital Signs (Past 12 Hours) Vital Signs Temp Pulse Pulse Pulse Resp BP Pulse Ox 03/11/19 12:31 36.9 C 54 L 16 145/72 H 97 03/11/19 08:38 36.5 C 62 16 150/58 H 94 03/11/19 08:20 76 03/11/19 06:14 86 22 146/88 H 98 03/11/19 04:00 36.5 C 76 20 120/71 98 PG Care Time/CCT Total # of Minutes Spent Total Time Spent with Patient: Total time spent is greater than 50% in coordination of care (as documented) at patient's floor/unit and/or counseling patient: (1) Anemia Anemia type: unspecified type Qualified Code(s): D64.9 - Anemia, unspecified (2) GI bleed GI bleed type/associated pathology: unspecified gastrointestinal hemorrhage type Qualified Code(s): K92.2 - Gastrointestinal hemorrhage, unspecified
[2019-03-11] MEDS ORDERED: TRAMADOL HCL 50 MG TABLET PO ONE (18:30)
[2019-03-11] MEDS: PRAVASTATIN SOD 20 MG TAB PO SCH (20:06)
[2019-03-11 20:09] LABS: Hematocrit (blood only) 27.5 % (42-52); Hemoglobin 8.2 g/dL (14.0-18.0)
[2019-03-11] MEDS ORDERED: LAVAGE SOLUTION 4000ML PO SCH (22:00)
[2019-03-12] MEDS: PANTOprazole 40 MG in DEXTROSE 5% 100 ML IV SCH ×5 (01:28→19:51)
[2019-03-12] MEDS: NITROGLYCERIN 2% OINTMENT 30GM TUBE EXT SCH ×4 (06:27→18:36)
[2019-03-12 08:12] LABS: Hematocrit (blood only) 26.1 % (42-52); Hemoglobin 7.7 g/dL (14.0-18.0); Mean Corpuscular Hemoglobin 23.1 pg (25-34); Mean Corpuscular Hgb Conc 29.5 g/dL (32-36); Mean Corpuscular Volume 78.4 fL (80-100); Platelet Count 215 K/uL (130-400); RDW Coefficient of Variation 15.8 % (11.5-14.5); RDW Standard Deviation 45.8 fL (36.4-46.3); Red Blood Count 3.33 M/uL (4.7-6.1); White Blood Count 5.39 K/uL (4.8-10.8)
[2019-03-12] MEDS: dilTIAZem HCL 120 MG CAPCR PO SCH ×2 (08:12→19:48)
--- NOTE | 2019-03-12 09:09 | Cardiology Progress Note ---
Date of Service March 12, 2019 Assessment & Plan (1) SOB (shortness of breath): (2) Anemia: SOB due to anemia. GI bleed suspected. EGD colonoscopy planned an pt is stable from a cardiac perspective to proceed. (3) SVT (supraventricular tachycardia): Echo with normal wall motion, normal LVEF, no significant valvular disease. On diltiazem 120 mg BID. Add low dose metoprolol, first dose this evening, after recovers from endoscopy. Subjective CC: follow up shortness of breath Subjective: Pt comfortable. Telemetry reveals SR, one brief episode of PAT overnight. Pt describes long standing history of subjective palpitations. States Diltiazem started when he was followed at [place] in the past. Review of Systems Review of Systems: All systems reviewed & are unremarkable except as noted in HPI & below Physical Exam Physical Exam: Temp Pulse Resp BP Pulse Ox 36.5 C 74 20 117/74 96 03/12/19 08:03 03/12/19 08:03 03/12/19 08:03 03/12/19 08:03 03/12/19 08:03 Constitutional: WD/WN, vitals as above Respiratory: normal respiratory effort, lungs clear to auscultation Cardiovascular: RRR, no murmur, no edema Vessels: no JVD Gastrointestinal (Abdomen): normal bowel sounds, soft, nontender, no hepatosplenomegaly Neurologic: PERRL, EOMI, accommodation nl, no face palsy, no dysarthria Results & Data Vital Signs (Past 12 Hours) Vital Signs Temp Pulse Pulse Pulse Resp BP Pulse Ox 03/12/19 08:03 36.5 C 74 20 117/74 96 03/12/19 07:55 36.5 C 74 16 117/74 96 03/12/19 03:15 36.4 C L 81 18 115/79 95 03/12/19 00:00 76 03/11/19 23:43 36.6 C 74 20 121/78 96 Laboratory Results CBC 03/11/19 03/12/19 Range/Units 19:52 07:56 WBC 5.39 (4.8-10.8) K/uL RBC 3.33 L (4.7-6.1) M/uL Hgb 8.2 L 7.7 L (14.0-18.0) g/dL Hct 27.5 L 26.1 L (42-52) % Plt Count 215 (130-400) K/uL Intake and Output 03/11/19 03/12/19 03/12/19 22:59 06:59 14:59 Intake Total 1099 / 4397.334 3198.334 / 4397.334 Output Total 350 / 763 Balance 749 / 3634.334 3185.334 / 3634.334 Intake: IV 199 / 497.334 198.334 / 497.334 Protonix 40 mg In D5 100 ml @ 199 / 497.334 198.334 / 497.334 20 mls/hr IV Q5H [facility] Rx#: [id number] Oral 900 / 3900 3000 / 3900 Output: Urine 350 / 750 # Bowel Movements Other: Weight 122.1 kg Diagnostic Findings EKG performed 03/11/19: reveals SR with PACs Medications Administered Current Inpatient Medications Acetaminophen (Tylenol) 650 mg PO Q4H PRN PRN Reason: Pain or Fever Stop: 04/09/19 20:03 Last Admin: 03/10/19 22:31 Dose: 650 mg Documented by: Diltiazem HCl (Cardizem Cd) 120 mg PO BID [facility] Stop: 04/09/19 20:59 Last Admin: 03/12/19 08:12 Dose: 120 mg Documented by: Pantoprazole Sodium 40 mg/ (Dextrose) 100 mls @ 20 mls/hr IV Q5H [facility] Stop: 04/09/19 17:29 Last Admin: 03/12/19 06:27 Dose: 20 mls/hr Documented by: Sodium Chloride (Nss) 250 mls @ 15 mls/hr IV .[id number] PRN PRN Reason: For Transfusion Stop: 04/10/19 05:40 Sodium Chloride (Nss) 250 mls @ 15 mls/hr IV .[id number] PRN PRN Reason: For Transfusion Stop: 04/10/19 07:45 Labetalol HCl (Normodyne) 10 mg IV Q1H PRN PRN Reason: Blood Pressure - High Stop: 04/09/19 20:03 Nitroglycerin (Nitrostat) 0.4 mg SL UD PRN PRN Reason: Chest Pain Stop: 04/09/19 20:03 Nitroglycerin (Nitro-Bid 2%) 1 inch EXT Q6 PRABHJOT Stop: 04/10/19 00:00 Last Admin: 03/12/19 06:27 Dose: 1 inch Documented by: Ondansetron HCl (Zofran) 4 mg IV Q6H PRN PRN Reason: Nausea Stop: 04/09/19 20:03 Last Admin: 03/11/19 09:16 Dose: 4 mg Documented by: Pravastatin Sodium (Pravachol) 20 mg PO HS PRABHJOT Stop: 04/09/19 20:59 Last Admin: 03/11/19 20:06 Dose: 20 mg Documented by: (1) Anemia Anemia type: unspecified type Qualified Code(s): D64.9 - Anemia, unspecified
--- NOTE | 2019-03-12 09:56 | History & Physical Bridge Note ---
Date of Service March 12, 2019 History & Physical Bridge Note I have examined the patient, reviewed the History & Physical and in the interval since the performance of the History & Physical I have noted the following changes of clinical significance: Patient reports some shortness of breath with exertion as well as dizziness. Reports he did complete his bowel preparation and has been NPO except for meds this morning. Denies any abdominal pain, nausea or vomiting or overt GIB symptoms. PE: General: A&Ox3. Cardiovascular: RRR without M/R/G. Pulmonary: Lungs CTA bilaterally. Gastrointestinal: Abdomen soft, hyperactive bowel sounds. Nontender. Musculoskeletal: No lower extremity edema. A/P: NPO for EGD and colonoscopy with Dr. Bell today. Additional recommendations pending results of testing. Supervising Physician Co-Signing Physician Notes Agree with ZACH Huerta as above Abd: Soft, NT, ND, +BS Continue current therapy Proceed with EGD and colonoscopy today.
[2019-03-12] MEDS ORDERED: ALBUT/IPRATROP 3MG/0.5MG NEB 3 ML VIAL NEB STA (11:12)
--- NOTE | 2019-03-12 12:19 | Hospitalist Progress Note ---
Date of Service March 12, 2019 Assessment & Plan (1) Dyspnea: Present on admission with worsening SOB with exertion for the last few weeks Possible related to anemia vs cardiac etiology Chest x-ray showed cardiomegaly with volume overload and congestive change. Hgb dropped to 7.7 today BNP negative and troponin negative Received Lasix IV on admission ECHO showed no wall motion abnormality. EF 60-65% Cardiology on board Continue monitor closely (2) Abnormal chest xray: Portable chest x-ray shows a left retrocardiac density, possible hiatal hernia. Will get PA/LA CXR in am (3) SVT (supraventricular tachycardia): Developed narrow complex tachyarrhythmia in ED consistent with SVT. Received IV metoprolol in the ER and was back to NSR Tele monitor showed brief episode of bradycardia and SVT cardiology on board On Cardizem 120mg BID Starting on low dose metoprolol Keep Mg above 2 and K above 4 Continue monitor in tele (4) GI bleed: (5) Anemia: Stools heme positive in ED. Hemoglobin dropped to 7.8 Microcytosis suggests chronic GI blood loss. Iron studies showed low iron level, low ferritin Continue to hold aspirin GI on board Will cchange to oral PPI Discussed with pt about blood transfusion if hgb continues to drop Pt said that he does not want any blood transfusion even if his hemoglobin drop below 7 He said that he will be ok with iron transfusion and supplement Plan for EGD and colonosc (6) Coronary artery disease: Report that he had 3 MIs in the past that were managed in [place] (2 of 3 [place]) Consent signed to request document from [place] Hold aspirin until active GI bleeding has resolved. Continue statin ECHO showed no wall motion abnormality (7) Cerebrovascular disease: Patient reports history of 2 strokes in the past. No residual deficits. Hold aspirin until GI bleed resolved. Continue statin. Stable (8) Hypertension: Has been prescribed diltiazem, but not taking it recently because he felt that blood pressures running too low. Continue diltiazem CD 120 mg BID. Low dose metoprolol added BP stable (9) Peripheral arterial disease: Hold aspirin and pentoxifylline until GI bleed has resolved. (10) GERD (gastroesophageal reflux disease): Continue PPI. (11) DVT prophylaxis: No anticoagulants because of GI bleeding. SCDs. Ambulate as able. (12) Discharge planning issues: Anticipated return to [facility] under the care of the medical team there. Continue monitor in tele Subjective Pt was seen and examined Lying in bed with no distress Pt said that he had a rough night He said that he was drinking the Golyt[place] last night He said that he is hungry He had a brief episode of SVT and bradycardia on tele monitor Denies any chest pain, palpitation and SOB Physical Exam Physical Exam: General- No acute distress Head- atraumatic Eyes- PERRL, EOMI, ENT- oropharynx clear Neck- supple, no JVD Lungs- clear to auscultation Heart- regular rhythm; no murmur Abdomen- normal bowel sounds, soft, nontender Extremities- no calf tenderness Neuro- alert, oriented x 3; PERRL, EOMI; no facial palsy; no dysarthria Skin- warm & dry Results & Data Vital Signs (Past 12 Hours) Vital Signs Temp Pulse Pulse Resp BP Pulse Ox 03/12/19 11:30 36.5 C 69 16 125/75 92 03/12/19 11:17 67 18 85 L 03/12/19 08:03 36.5 C 74 20 117/74 96 03/12/19 07:55 36.5 C 74 16 117/74 96 03/12/19 07:25 65 03/12/19 03:15 36.4 C L 81 18 115/79 95 (1) GI bleed GI bleed type/associated pathology: unspecified gastrointestinal hemorrhage type Qualified Code(s): K92.2 - Gastrointestinal hemorrhage, unspecified (2) Anemia Anemia type: unspecified type Qualified Code(s): D64.9 - Anemia, unspecified (3) Hypertension Hypertension type: unspecified Qualified Code(s): I10 - Essential (primary) hypertension
[2019-03-12] MEDS ORDERED: SODIUM CHLORIDE 0.65% NA SOLN 45 ML (OCEAN) ONE (14:51)
--- NOTE | 2019-03-12 15:51 | Anesthesiology Consultation ---
Date of Service March 12, 2019 Assessment & Plan Chart Review Chart Review: Acceptable Risk for Surgery Consults Requested none History Surgery Operation Date: 03/12/19 09:30 Proposed Procedures p Colonoscopy EGD Dr. Ray Bell, Height/Weight Height: 5 ft 11 in Weight: 122.1 kg Allergies Allergy/AdvReac Type Severity Reaction Status Date / Time No Known Allergies Allergy Unverified 03/10/19 16:11 Medications Home Medications Medication Instructions Recorded Confirmed Last Taken aspirin [Aspir-81] 81 mg PO DAILY 03/10/19 03/10/19 Unknown azelastine 2 spray INTRANASAL BID 03/10/19 03/10/19 Unknown cetirizine 10 mg PO DAILY 03/10/19 03/10/19 Unknown cholecalciferol (vitamin D3) 400 unit PO DAILY 03/10/19 03/10/19 Unknown [Vitamin D3] diltiazem HCl 240 mg PO DAILY 03/10/19 03/10/19 Unknown guaifenesin [Mucosa] 400 mg PO BID PRN 03/10/19 03/10/19 Unknown levalbuterol tartrate [Xopenex HFA] 1 puff INHALATION Q6H PRN 03/10/19 03/10/19 Unknown omeprazole 20 mg PO DAILY 03/10/19 03/10/19 Unknown pentoxifylline 400 mg PO TID 03/10/19 03/10/19 Unknown pravastatin 20 mg PO HS 03/10/19 03/10/19 Unknown Active Medications Generic Name Dose Route Start Last Admin Trade Name Freq PRN Reason Stop Dose Admin Acetaminophen 650 mg 03/10/19 20:04 03/10/19 22:31 Tylenol PO 04/09/19 20:03 650 mg Q4H PRN Administration Pain or Fever Diltiazem HCl 120 mg 03/10/19 21:00 03/12/19 08:12 Cardizem Cd PO 04/09/19 20:59 120 mg BID PRABHJOT Administration Pantoprazole Sodium 40 mg/ 100 mls @ 20 mls/hr 03/10/19 17:30 03/12/19 15:45 Dextrose IV 04/09/19 17:29 0 mls/hr Q5H PRABHJOT Infusion Nitroglycerin 1 inch 03/11/19 00:00 03/12/19 11:53 Nitro-Bid 2% EXT 04/10/19 00:00 1 inch Q6 PRABHJOT Administration Ondansetron HCl 4 mg 03/10/19 20:04 03/11/19 09:16 Zofran IV 04/09/19 20:03 4 mg Q6H PRN Administration Nausea Pravastatin Sodium 20 mg 03/10/19 21:00 03/11/19 20:06 Pravachol PO 04/09/19 20:59 20 mg HS PRABHJOT Administration NPO Date Last Intake of Fluids: 03/12/19 Time Last Intake of Fluids: 08:15 Date Last Intake of Solids: 03/11/19 Time Last Intake of Solids: 15:00 Past Medical History Medical History GERD (gastroesophageal reflux disease) (Chronic) Peripheral arterial disease (Chronic) Cerebrovascular disease (Chronic) Coronary artery disease (Chronic) Hypertension (Chronic) GERD (gastroesophageal reflux disease) (Chronic) Hypertension (Chronic) [place] (myocardial infarction) (Chronic) Pt reports 3 ID's, but no cardiac cath or revascularization. Stroke (Chronic) Past Family History Family History Mother Hypertension Diabetes Sister Diabetes Sister Diabetes Other No significant family history Past Surgical History Surgical History Status post hernia repair Social History Smoking Status: Former smoker Hx Alcohol Use: No Hx Substance Use: No Physical Exam Vital Signs Last Vital Signs Temp 36.4 C L 03/12/19 15:46 Pulse 79 03/12/19 15:46 Resp 20 03/12/19 15:46 BP 145/82 H 03/12/19 15:46 Pulse Ox 92 03/12/19 15:46 Testing Laboratory Results 03/12/19 07:56 03/11/19 05:18 PT 10.3 Seconds (9.0-12.0) 03/10/19 15:47 INR 1.0 (0.9-1.1) 03/10/19 15:47 APTT 25.2 Seconds (21.0-31.0) 03/10/19 15:47 Blood Type A Positive 03/10/19 15:47 Antibody Screen POSITIVE A 03/10/19 15:47
[2019-03-12] MEDS ORDERED: MIDAZOLAM HCL 1 MG/ML 2ML VIAL ONE (16:17)
[2019-03-12] MEDS ORDERED: fentaNYL citrate 100 MCG/2 ML VIAL ONE (16:18)
[2019-03-12] MEDS ORDERED: LIDOCAINE HCL 2% 2 ML VIAL/AMP(20MG/ML) INFIL ONE (16:29)
[2019-03-12] MEDS ORDERED: PROPOFOL IV EMULSION 10 MG/ML 20 ML VIAL IV ONE (16:29)
--- NOTE | 2019-03-12 16:47 | GI REPORT ---
Patient Name: Jorge Alberto Geller Procedure Date: 03/12/2019 3:55 PM Date of : 1955 Admit Type: Inpatient Age: 63 Gender: Male Attending MD: Terrance Bell DO Procedure: Colonoscopy Providers: Terrance Bell DO Referring MD: EWA MORALES Indications: Heme positive stool, Iron deficiency anemia Medicines: Monitored Anesthesia Care Complications: No immediate complications. Estimated Blood Loss: Estimated blood loss: none. Procedure: Pre-Anesthesia Assessment: - Prior to the procedure, a History and Physical was performed, and patient medications and allergies were reviewed. The patient's tolerance of previous anesthesia was also reviewed. The risks and benefits of the procedure and the sedation options and risks were discussed with the patient. All questions were answered, and informed consent was obtained. Prior Anticoagulants: The patient has taken aspirin, last dose was 2 days prior to procedure. ASA Grade Assessment: III - A patient with severe systemic disease. After reviewing the risks and benefits, the patient was deemed in satisfactory condition to undergo the procedure. After I obtained informed consent, the scope was passed under direct vision. Throughout the procedure, the patient's blood pressure, pulse, and oxygen saturations were monitored continuously. The Scope was introduced through the anus and advanced to the cecum, identified by appendiceal orifice and ileocecal valve. The colonoscopy was performed without difficulty. The patient tolerated the procedure well. The quality of the bowel preparation was good. The ileocecal valve, appendiceal orifice, and rectum were photographed. Findings: The perianal and digital rectal examinations were normal. A 10 mm polyp was found in the recto-sigmoid colon. The polyp was sessile. The polyp was removed with a hot snare. Resection and retrieval were complete. Non-bleeding internal hemorrhoids were found during retroflexion. The hemorrhoids were small. Impression: - One 10 mm polyp at the recto-sigmoid colon, removed with a hot snare. Resected and retrieved. - Non-bleeding internal hemorrhoids. Recommendation: - Return patient to [facility] for ongoing care. - Resume previous diet. - Continue present medications. - Repeat colonoscopy for surveillance based on pathology results. Terrance Bell DO 03/12/2019 4:46:33 PM This report has been signed electronically. Note Initiated On: 03/12/2019 3:55 PM Number of Addenda: 0 I attest to the content of the Intraoperative Record and orders documented therein, exceptions below {[id number]}
--- NOTE | 2019-03-12 16:47 | Anesthesiology Progress Note ---
Date of Service March 12, 2019 Anesthesia Post Procedure Vital Signs Vital Signs: Temp Pulse Pulse Pulse Resp BP Pulse Ox 03/12/19 15:46 36.4 C L 79 20 145/82 H 92 03/12/19 15:19 36.6 C 86 20 113/69 94 03/12/19 11:30 36.5 C 69 16 125/75 92 03/12/19 11:17 67 18 85 L 03/12/19 08:03 36.5 C 74 20 117/74 96 03/12/19 07:55 36.5 C 74 16 117/74 96 03/12/19 07:25 65 03/12/19 03:15 36.4 C L 81 18 115/79 95 03/12/19 00:00 76 03/11/19 23:43 36.6 C 74 20 121/78 96 03/11/19 19:22 36.7 C 78 18 134/77 95 Transfer of Care Handoff Completed per policy Notes Mental Status: alert / awake / arousable and participated in evaluation Patient Amnestic to Procedure: Yes Nausea / Vomiting: adequately controlled Pain: adequately controlled Airway Patency, RR, SpO2: stable & adequate BP & HR: stable & adequate Hydration State: stable & adequate Anesthetic Complications: no major complications apparent
--- NOTE | 2019-03-12 16:49 | GI REPORT ---
Patient Name: Jorge Alberto Geller Procedure Date: 03/12/2019 3:56 PM Date of : 1955 Admit Type: Inpatient Age: 63 Gender: Male Attending MD: Terrance Bell DO Procedure: Upper GI endoscopy Providers: Terrance Bell DO Referring MD: EWA MORALES Indications: Iron deficiency anemia, Heme positive stool Medicines: Monitored Anesthesia Care Complications: No immediate complications. Estimated Blood Loss: Estimated blood loss: none. Procedure: Pre-Anesthesia Assessment: - Prior to the procedure, a History and Physical was performed, and patient medications and allergies were reviewed. The patient's tolerance of previous anesthesia was also reviewed. The risks and benefits of the procedure and the sedation options and risks were discussed with the patient. All questions were answered, and informed consent was obtained. Prior Anticoagulants: The patient has taken aspirin, last dose was 2 days prior to procedure. ASA Grade Assessment: III - A patient with severe systemic disease. After reviewing the risks and benefits, the patient was deemed in satisfactory condition to undergo the procedure. After obtaining informed consent, the endoscope was passed under direct vision. Throughout the procedure, the patient's blood pressure, pulse, and oxygen saturations were monitored continuously. The Endoscope was introduced through the mouth, and advanced to the second part of duodenum. The upper GI endoscopy was accomplished without difficulty. The patient tolerated the procedure well. Findings: The esophagus was normal. A large hiatal hernia with multiple Don ulcers was found. The examined duodenum was normal. Impression: - Normal esophagus. - Large hiatal hernia with multiple Don ulcers. - Normal examined duodenum. - No specimens collected. Recommendation: - Return patient to [facility] for ongoing care. - Resume previous diet. - Continue present medications. Terrance Bell DO 03/12/2019 4:48:51 PM This report has been signed electronically. Note Initiated On: 03/12/2019 3:56 PM Number of Addenda: 0 I attest to the content of the Intraoperative Record and orders documented therein, exceptions below {[id number]}
[2019-03-12] MEDS: METOPROLOL TARTRATE 25 MG TAB PO SCH (19:48)
[2019-03-12] MEDS: PRAVASTATIN SOD 20 MG TAB PO SCH (19:48)
[2019-03-13] MEDS: PANTOprazole 40 MG in DEXTROSE 5% 100 ML IV SCH ×2 (03:25→09:07)
[2019-03-13] MEDS: NITROGLYCERIN 2% OINTMENT 30GM TUBE EXT SCH ×2 (03:25→06:33)
[2019-03-13] MEDS: ALBUT/IPRATROP 3MG/0.5MG NEB 3 ML VIAL NEB PRN ×2 (05:44→19:44)
[2019-03-13 06:58] LABS: Hematocrit (blood only) 26.1 % (42-52); Hemoglobin 7.7 g/dL (14.0-18.0); Mean Corpuscular Hemoglobin 23.1 pg (25-34); Mean Corpuscular Hgb Conc 29.5 g/dL (32-36); Mean Corpuscular Volume 78.1 fL (80-100); Mean Platelet Volume 10.1 fL (7.4-10.4); Platelet Count 241 K/uL (130-400); RDW Coefficient of Variation 16.1 % (11.5-14.5); Red Blood Count 3.34 M/uL (4.7-6.1); White Blood Count 5.65 K/uL (4.8-10.8)
--- NOTE | 2019-03-13 07:22 | Anesthesiology Progress Note ---
Date of Service March 13, 2019 Anesthesia Post Procedure Vital Signs Vital Signs: Temp Pulse Pulse Pulse Resp BP BP 03/13/19 07:01 37.0 C 78 16 133/66 03/13/19 05:48 86 16 03/13/19 04:19 36.7 C 76 18 113/65 03/12/19 23:50 37.0 C 79 20 127/78 03/12/19 19:19 36.5 C 87 17 123/73 03/12/19 17:59 77 117/67 03/12/19 17:53 36.6 C 76 18 131/76 03/12/19 17:12 82 16 152/84 H 03/12/19 16:57 78 16 135/67 03/12/19 16:42 80 80 16 96/58 L 03/12/19 15:46 36.4 C L 79 20 145/82 H 03/12/19 15:19 36.6 C 86 20 113/69 03/12/19 11:30 36.5 C 69 16 125/75 03/12/19 11:17 67 18 03/12/19 08:03 36.5 C 74 20 117/74 03/12/19 07:55 36.5 C 74 16 117/74 03/12/19 07:25 65 Pulse Ox 03/13/19 07:01 96 03/13/19 05:48 95 03/13/19 04:19 97 03/12/19 23:50 96 03/12/19 19:19 94 03/12/19 17:59 03/12/19 17:53 95 03/12/19 17:12 95 03/12/19 16:57 95 03/12/19 16:42 95 03/12/19 15:46 92 03/12/19 15:19 94 03/12/19 11:30 92 03/12/19 11:17 85 L 03/12/19 08:03 96 03/12/19 07:55 96 03/12/19 07:25 Notes Mental Status: alert / awake / arousable and participated in evaluation Nausea / Vomiting: adequately controlled Pain: adequately controlled Airway Patency, RR, SpO2: stable & adequate BP & HR: stable & adequate Hydration State: stable & adequate
--- NOTE | 2019-03-13 07:30 | XRay Report ---
XR chest 1V portable HISTORY: Shortness of breath. COMPARISON: Chest 03/10/2019. FINDINGS: Persistent elevation of the left hemidiaphragm versus a hiatal hernia. No pneumothorax. No pleural effusions. The heart remains moderately enlarged. No evidence for pulmonary edema. No new foc al lung consolidations to suggest pneumonia. IMPRESSION: Stable mild cardiomegaly. No evidence for pulmonary edema. Persistent elevation of the left hemidiaph ragm versus a hiatal hernia. Electronically signed by: Beau Ring M.D. 03/13/2019 7:29 AM
[2019-03-13] MEDS: METOPROLOL TARTRATE 25 MG TAB PO SCH ×2 (09:07→21:11)
[2019-03-13] MEDS: dilTIAZem HCL 120 MG CAPCR PO SCH ×2 (09:08→21:11)
--- NOTE | 2019-03-13 09:53 | Gastroenterology Progress Note ---
Date of Service March 13, 2019 Assessment & Plan (1) Anemia: (2) Don ulcer: (3) HH (hiatus hernia): 1. Stop PPI ggt. 2. Start Protonix 40 mg PO BID. 3. Diet as tolerated. 4. Consider thoracic surgery evaluation due to large HH with associated Don's ulcerations. Patient refuses blood transfusions due to bahai beliefs. 5. Consider supplemental iron. 6. Continue supportive care. Supervising Physician Co-Signing Physician Notes I personally evaluated the patient and agree with the findings and plan as documented by ZACH Huerta. Exam: abd: soft, nt, nd, no hsm Brendan aYnez MD Gastroenterology Subjective Patient reports feeling well today other than mild shortness of breath. Denies any n/v, abdominal pain or overt GIB. H&H remains unchanged from yesterday at 7.7/.1. Refused blood transfusion due to bahai beliefs. Continues PPI ggt. EGD yesterday with finding of large hiatus hernia with associated Don's erosions. Review of Systems Constitutional: no problem reported Respiratory: as per Subjective / HPI Cardiovascular: no chest pain and no palpitations Gastrointestinal: as per Subjective / HPI Neurologic: no dizziness and no syncope Physical Exam Constitutional: WD/WN, vitals as above Respiratory: normal respiratory effort Auscultation: + wheezes Cardiovascular: Rate/Rhythm: regular rate and regular rhythm Heart Sounds: no gallop, no murmur and no cardiac rub Gastrointestinal (Abdomen): Inspection/Auscultation: abdomen normal to inspection Percussion/Palpation: abdomen soft; abdomen nontender Musculoskeletal: Extremities: extremities normal to inspection Psychiatric: A+Ox3, euthymic affect Results & Data Vital Signs (Past 12 Hours) Vital Signs Temp Pulse Pulse Resp BP Pulse Ox 03/13/19 07:25 81 03/13/19 07:01 37.0 C 78 16 133/66 96 03/13/19 05:48 86 16 95 03/13/19 04:19 36.7 C 76 18 113/65 97 03/12/19 23:50 37.0 C 79 20 127/78 96 Laboratory Results Abnormal lab results 03/10/19 03/13/19 Range/Units 15:47 06:35 RBC 3.34 L (4.7-6.1) M/uL Hgb 7.7 L (14.0-18.0) g/dL Hct 26.1 L (42-52) % MCV 78.1 L (80-100) fL MCH 23.1 L (25-34) pg MCHC 29.5 L (32-36) g/dL RDW Coeff of Ruba 16.1 H (11.5-14.5) % Crossmatch See Detail PG Care Time/CCT Total # of Minutes Spent Total Time Spent with Patient: Total time spent is greater than 50% in coordination of care (as documented) at patient's floor/unit and/or counseling patient: (1) Anemia Anemia type: unspecified type Qualified Code(s): D64.9 - Anemia, unspecified
--- NOTE | 2019-03-13 09:55 | Cardiology Progress Note ---
Date of Service March 13, 2019 Assessment & Plan (1) SOB (shortness of breath): (2) Anemia: EGD notable for hiatal hernia and Don ulcers, perhaps is contributing to the anemia. A polyp was also removed on colonoscopy. Globin remains 7.7. Does not meet threshold for transfusion as the patient has no active angina. (3) SVT (supraventricular tachycardia): Echo with normal wall motion, normal LVEF, no significant valvular disease. On diltiazem 120 mg BID. Low-dose metoprolol added last night 12.5 mg twice daily. Continue to monitor on telemetry, the brief episodes of Mobitz type I AV block or without sustained bradycardia, and I believe patient may remain on both the diltiazem and metoprolol, as he does get symptoms from the brief episodes of SVT. Although patient states that he has had "2 heart attacks "in the past he states he has not had any heart stents. I believe it is reasonable for him to remain off of aspirin. Discontinue his topical nitrates. We will monitor his blood pressure. Subjective Chief complaint: Follow-up shortness of breath, palpitations Subjective: Patient tolerated EGD colonoscopy well yesterday. He notes ongoing mild shortness of breath but no distress. No angina. Telemetry reveals several very brief episodes of tachycardia consistent with SVT at about 7 PM last night that were nonsustained. This morning at 610 and 727 patient had brief episodes of Mobitz type I second-degree heart block, having dropped 1 beat for each of these events without prolonged bradycardia. Review of Systems Review of Systems: All systems reviewed & are unremarkable except as noted in HPI & below Physical Exam Physical Exam: Temp Pulse Resp BP Pulse Ox 37.0 C 81 16 133/66 96 03/13/19 07:01 03/13/19 07:25 03/13/19 07:01 03/13/19 07:01 03/13/19 07:01 Constitutional: WD/WN, vitals as above Respiratory: normal respiratory effort, lungs clear to auscultation Cardiovascular: RRR, no murmur, no edema Gastrointestinal (Abdomen): normal bowel sounds, soft, nontender, no hepatosplenomegaly Neurologic: PERRL, EOMI, accommodation nl, no face palsy, no dysarthria Results & Data Vital Signs (Past 12 Hours) Vital Signs Temp Pulse Pulse Resp BP Pulse Ox 03/13/19 07:25 81 03/13/19 07:01 37.0 C 78 16 133/66 96 03/13/19 05:48 86 16 95 03/13/19 04:19 36.7 C 76 18 113/65 97 03/12/19 23:50 37.0 C 79 20 127/78 96 Laboratory Results CBC 03/13/19 Range/Units 06:35 WBC 5.65 (4.8-10.8) K/uL RBC 3.34 L (4.7-6.1) M/uL Hgb 7.7 L (14.0-18.0) g/dL Hct 26.1 L (42-52) % Plt Count 241 (130-400) K/uL Intake and Output 03/12/19 03/13/19 03/13/19 22:59 06:59 14:59 Intake Total 520 / 960 340 / 960 100 / 100 Output Total 400 / 1350 650 / 1350 350 / 350 Balance 120 / -390 -310 / -390 -250 / -250 Intake: IV 200 / 400 100 / 400 100 / 100 Protonix 40 mg In D5 100 ml @ 200 / 400 100 / 400 100 / 100 20 mls/hr IV Q5H [facility] Rx#: [id number] Oral 320 / 560 240 / 560 Output: Urine 400 / 1350 650 / 1350 350 / 350 Other: Weight 122.1 kg 110.5 kg Medications Administered Current Inpatient Medications Acetaminophen (Tylenol) 650 mg PO Q4H PRN PRN Reason: Pain or Fever Stop: 04/09/19 20:03 Last Admin: 03/10/19 22:31 Dose: 650 mg Documented by: Albuterol (Duoneb) 3 ml NEB Q2H PRN PRN Reason: Wheezing Stop: 04/12/19 05:33 Last Admin: 03/13/19 05:44 Dose: 3 ml Documented by: Diltiazem HCl (Cardizem Cd) 120 mg PO BID [facility] Stop: 04/09/19 20:59 Last Admin: 03/13/19 09:08 Dose: 120 mg Documented by: Sodium Chloride (Nss) 250 mls @ 15 mls/hr IV .[id number] PRN PRN Reason: For Transfusion Stop: 04/10/19 05:40 Sodium Chloride (Nss) 250 mls @ 15 mls/hr IV .[id number] PRN PRN Reason: For Transfusion Stop: 04/10/19 07:45 Labetalol HCl (Normodyne) 10 mg IV Q1H PRN PRN Reason: Blood Pressure - High Stop: 04/09/19 20:03 Metoprolol Tartrate (Lopressor) 12.5 mg PO BID [facility] Stop: 04/11/19 20:59 Last Admin: 03/13/19 09:07 Dose: 12.5 mg Documented by: Nitroglycerin (Nitrostat) 0.4 mg SL UD PRN PRN Reason: Chest Pain Stop: 04/09/19 20:03 Nitroglycerin (Nitro-Bid 2%) 1 inch EXT Q6 [facility] Stop: 04/10/19 00:00 Last Admin: 03/13/19 06:33 Dose: 1 inch Documented by: Ondansetron HCl (Zofran) 4 mg IV Q6H PRN PRN Reason: Nausea Stop: 04/09/19 20:03 Last Admin: 03/11/19 09:16 Dose: 4 mg Documented by: Pantoprazole Sodium (Protonix) 40 mg PO BID [facility] Stop: 04/12/19 20:59 Pravastatin Sodium (Pravachol) 20 mg PO HS [facility] Stop: 04/09/19 20:59 Last Admin: 03/12/19 19:48 Dose: 20 mg Documented by: (1) Anemia Anemia type: unspecified type Qualified Code(s): D64.9 - Anemia, unspecified
[2019-03-13] MEDS ORDERED: FERROUS SULFATE 325 MG TAB PO SCH (13:00)
--- NOTE | 2019-03-13 18:37 | Hospitalist Progress Note ---
Date of Service March 13, 2019 Assessment & Plan (1) Dyspnea: Present on admission with worsening SOB with exertion for the last few weeks Possible related to anemia vs cardiac etiology Chest x-ray showed cardiomegaly with volume overload and congestive change. Hgb dropped to 7.7 today BNP negative and troponin negative Received Lasix IV on admission ECHO showed no wall motion abnormality. EF 60-65% Cardiology on board Continue neb treatment prn (2) Abnormal chest xray: Portable chest x-ray shows a left retrocardiac density, possible hiatal hernia. EGD showed large hiatal hernia (3) SVT (supraventricular tachycardia): Developed narrow complex tachyarrhythmia in ED consistent with SVT. Received IV metoprolol in the ER and was back to NSR Tele monitor showed brief brief episodes of Mobitz type I AV block or without sustained bradycardia cardiology on board On Cardizem 120mg BID and low dose metoprolol Keep Mg above 2 and K above 4 Continue monitor in tele (4) GI bleed: (5) Anemia: Stools heme positive in ED. Hemoglobin dropped to 7.7 today Microcytosis suggests chronic GI blood loss. Iron studies showed low iron level, low ferritin Continue to hold aspirin GI on board Continue Oral PPI Discussed with pt about blood transfusion if hgb continues to drop Pt said that he does not want any blood transfusion even if his hemoglobin drop below 7 He said that he will be ok with iron transfusion and supplement Colonoscopy done yesterday where 10 mm polyp at the recto-sigmoid colon- waiting for pathology result EGD done showed Large hiatal hernia with multiple Don ulcers. 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 Continue statin ECHO showed no wall motion abnormality (7) Cerebrovascular disease: Patient reports history of 2 strokes in the past. No residual deficits. Hold aspirin until GI bleed resolved. Continue statin. Stable (8) Hypertension: Has been prescribed diltiazem, but not taking it recently because he felt that blood pressures running too low. Continue diltiazem CD 120 mg BID. Low dose metoprolol added BP stable (9) Peripheral arterial disease: Hold aspirin and pentoxifylline until GI bleed has resolved. (10) HH (hiatus hernia): EGD showed Large hiatal hernia with multiple Don ulcers GI recommended thoracic surgery eval Will consult thoracic surgeon Dr. Fried (11) GERD (gastroesophageal reflux disease): Continue PPI. (12) DVT prophylaxis: No anticoagulants because of GI bleeding. SCDs. Ambulate as able. (13) Discharge planning issues: Anticipated return to [facility] under the care of the medical team [place]. Continue monitor in tele Subjective Pt was seen and examined Lying in bed with no distress Pt said that she feels fine Denies any chest pain, palpitation, dizziness and SOB Physical Exam Physical Exam: General- No acute distress Head- atraumatic Eyes- PERRL, EOMI, ENT- oropharynx clear Neck- supple, no JVD Lungs- clear to auscultation Heart- regular rhythm; no murmur Abdomen- normal bowel sounds, soft, nontender Extremities- no calf tenderness Neuro- alert, oriented x 3; PERRL, EOMI; no facial palsy; no dysarthria Skin- warm & dry Results & Data Vital Signs (Past 12 Hours) Vital Signs Temp Pulse Resp BP Pulse Ox 03/13/19 15:37 37.0 C 82 20 148/80 H 96 03/13/19 14:20 85 03/13/19 11:07 37.0 C 80 18 138/83 97 03/13/19 07:25 81 03/13/19 07:01 37.0 C 78 16 133/66 96 (1) GI bleed GI bleed type/associated pathology: unspecified gastrointestinal hemorrhage type Qualified Code(s): K92.2 - Gastrointestinal hemorrhage, unspecified (2) Anemia Anemia type: unspecified type Qualified Code(s): D64.9 - Anemia, unspecified (3) Hypertension Hypertension type: unspecified Qualified Code(s): I10 - Essential (primary) hypertension
[2019-03-13] MEDS: PANTOprazole 40 MG TAB PO SCH (21:12)
[2019-03-13] MEDS: PRAVASTATIN SOD 20 MG TAB PO SCH (21:12)
[2019-03-14] MEDS ORDERED: NON-FORMULARY MEDICATION (Azelastine 2 SPRAYS) INTNAS SCH (05:45)
[2019-03-14] MEDS ORDERED: COUGH DROP (SUGAR FREE) LOZ 24 LOZ/1 BOX BUCCAL ONE (09:13)
[2019-03-14] MEDS: PANTOprazole 40 MG TAB PO SCH ×2 (09:15→21:12)
[2019-03-14] MEDS: dilTIAZem HCL 120 MG CAPCR PO SCH ×2 (09:15→21:13)
[2019-03-14] MEDS: METOPROLOL TARTRATE 25 MG TAB PO SCH ×2 (09:16→21:11)
--- NOTE | 2019-03-14 10:36 | Cardiology Progress Note ---
Date of Service March 14, 2019 Assessment & Plan (1) SOB (shortness of breath): (2) Anemia: EGD notable for hiatal hernia and Don ulcers, perhaps is contributing to the anemia. A polyp was also removed on colonoscopy. Globin remains 7.7. Does not meet threshold for transfusion as the patient has no active angina. (3) SVT (supraventricular tachycardia): Echo with normal wall motion, normal LVEF, no significant valvular disease. On diltiazem 120 mg BID. Telemetry reveals no additional runs of paroxysmal supraventricular tachycardia overnight. I discussed overnight events with the patient's nurse, at approximately 630 this morning. But concerned that the patient became bradycardic, and the external pacer pads were placed. I reviewed the telemetry, no profound bradycardia recurrent AV block noted at that time. I simply anticipated normal bradycardia with hours of sleep. We will continue prior to hospital dose of diltiazem, he is receiving 120 mg twice daily at present as compared to 240 mg of long-acting once per day. I think this twice a day dosing regimen would be ideal if it can be maintained at the [facility]. Low-dose metoprolol tartrate 12.5 mg twice daily has been added with good effect. Subjective Chief complaint: Follow-up shortness of breath, palpitations Subjective: Patient feeling well. No palpitations this morning. Review of Systems Review of Systems: All systems reviewed & are unremarkable except as noted in HPI & below Physical Exam Physical Exam: Temp Pulse Resp BP Pulse Ox 37.0 C 76 18 149/65 H 97 03/14/19 07:39 03/14/19 07:39 03/14/19 07:39 03/14/19 07:39 03/14/19 07:39 Constitutional: WD/WN, vitals as above Respiratory: normal respiratory effort, lungs clear to auscultation Cardiovascular: RRR, no murmur, no edema Gastrointestinal (Abdomen): normal bowel sounds, soft, nontender, no hepatosplenomegaly Neurologic: PERRL, EOMI, accommodation nl, no face palsy, no dysarthria Results & Data Laboratory Results Intake and Output 03/13/19 03/14/19 03/14/19 22:59 06:59 14:59 Intake Total 675 / 999.333 Output Total 600 / 2375 1175 / 2375 Balance 75 / -1375.667 -1175 / -1375.667 Intake: Oral 675 / 875 Output: Urine 600 / 2375 1175 / 2375 (1) Anemia Anemia type: unspecified type Qualified Code(s): D64.9 - Anemia, unspecified
[2019-03-14] MEDS: FLUTICASONE PROPIONATE NA SPR 16 GM BTL SCH (12:06)
[2019-03-14] MEDS: ALBUT/IPRATROP 3MG/0.5MG NEB 3 ML VIAL NEB PRN ×2 (12:58→21:15)
--- NOTE | 2019-03-14 15:05 | CT Scan Report ---
CT chest wo con CT DOSE: 714.70 mGycm HISTORY: Assess large hiatal hernia TECHNIQUE: Multiaxial CT images of the chest were performed without contrast. A dose lowering techni que was utilized adhering to the principles of ALARA. COMPARISON: Chest 03/13/2019. FINDINGS: There is a large hiatus hernia containing the majority of the stomach. This favors a slidin g hiatus hernia rather than a paraesophageal hernia as the gastroesophageal junction is just above th e level of the diaphragmatic hiatus. Only the gastric fundus remains below the level the diaphragm. T he visualized liver and spleen are unremarkable. No mediastinal or hilar lymphadenopathy. Normal hoang ar thoracic aorta. The heart is normal in size. There is mild mass effect along the posterior heart border from the large hiatus hernia. No suspicious lytic or blastic osseous lesions. No pneumothorax. No pleural effusions. The central airways are patent. Left basilar linear densities consistent with subsegmental atelectasis. This is likely due to the mass effect from the hiatus hernia. Otherwise, leno ngs are essentially clear. IMPRESSION: Large hiatus hernia containing the majority of the stomach as described above. Electronically signed by: Beau Ring M.D. 03/14/2019 3:04 PM
--- NOTE | 2019-03-14 15:23 | Hospitalist Progress Note ---
Date of Service March 14, 2019 Assessment & Plan (1) Dyspnea: Present on admission with worsening SOB with exertion for the last few weeks Possible related to anemia vs cardiac etiology Chest x-ray showed cardiomegaly with volume overload and congestive change. Hemoglobin on admission 8.2 and for the last 2 days remains around 7.7 Received Lasix IV on admission Remains stable clinically Continue neb treatment prn (2) Abnormal chest xray: Portable chest x-ray shows a left retrocardiac density, possible hiatal hernia. EGD showed large hiatal hernia Appreciate thoracic surgery input and recommendation Will have CT of the chest to evaluate hiatal hernia further (3) SVT (supraventricular tachycardia): Developed narrow complex tachyarrhythmia in ED consistent with SVT. Received IV metoprolol in the ER and was back to NSR Tele monitor showed brief brief episodes of Mobitz type I AV block or without sustained bradycardia ECHO showed no wall motion abnormality. EF 60-65% Cardiology on board appreciate input and recommendation Cardizem has been decreased from 240 to 120 mg twice daily Small dose of metoprolol Has not been having any significant bradycardia on monitor (4) GI bleed: Stools heme positive in ED. Microcytosis suggests chronic GI blood loss. Takes aspirin on a regular basis. Hold aspirin. IV pantoprazole. Management as below (5) Anemia: Likely secondary to chronic GI blood loss Iron studies showed low iron level, low ferritin Continue to hold aspirin Colonoscopy done yesterday-03/12 showed 10 mm polyp at the recto-sigmoid colon- waiting for pathology result EGD done showed Large hiatal hernia with multiple Don ulcers. 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 Continue statin (7) Cerebrovascular disease: Patient reports history of 2 strokes in the past. No residual deficits. Hold aspirin until GI bleed resolved. Continue statin. Stable (8) Hypertension: Has been prescribed diltiazem, but not taking it recently because he felt that blood pressures running too low. Continue diltiazem CD 120 mg BID. Low dose metoprolol added BP stable (9) Peripheral arterial disease: Hold aspirin and pentoxifylline until GI bleed has resolved. (10) HH (hiatus hernia): EGD showed Large hiatal hernia with multiple Don ulcers GI recommended thoracic surgery eval Will consult thoracic surgeon Dr. Carpenter Appreciate input and recommendation (11) GERD (gastroesophageal reflux disease): Continue PPI. (12) DVT prophylaxis: No anticoagulants because of GI bleeding. SCDs. Ambulate as able. (13) Discharge planning issues: Anticipated return to [facility] under the care of the medical team there. Continue monitor in tele Subjective 03/14 The patient was seen and examined in telemetry unit He denies any symptoms except occasional nausea He was noted to have bradycardia last night without any overt symptoms Review of Systems Review of Systems: All systems reviewed and are unremarkable except as noted below Constitutional: + weight gain; no fever and no weight loss Respiratory: as per Subjective / HPI Cardiovascular: as per Subjective / HPI; no chest pain and no dyspnea at rest Gastrointestinal: + bloating and + nausea; no vomiting Integumentary: healed ulcer right ankle Physical Exam Physical Exam: Lying in bed comfortably Constitutional: well developed, well nourished and + obese; no acute distress and not ill appearing Eyes: PERRL, conjunctivae normal, anicteric sclerae ENMT: external ear and nose normal, oropharynx normal Mouth: + dentition abnormality (poor dentition) Neck: trachea midline, no thyromegaly Respiratory: no respiratory distress Auscultation: lungs clear to auscultation bilaterally and + diminished lung sounds Cardiovascular: Rate/Rhythm: regular rate and regular rhythm (slightly irregular) Heart Sounds: no gallop, no murmur and no cardiac rub Vessels: + JVD Extremities: no calf tenderness and no edema Gastrointestinal (Abdomen): Inspection/Auscultation: abdomen normal to inspection and normal bowel sounds Percussion/Palpation: abdomen soft Musculoskeletal: Head/Neck/Chest: neck supple Extremities: strength 5/5 throughout; no cyanosis and no clubbing Skin: no rashes, warm and dry Neurologic: moves all extremities and + focal motor deficit Psychiatric: Orientation: alert and oriented x 3 Affect: euthymic affect Lymphatic: no cervical lymphadenopathy Results & Data Vital Signs (Past 12 Hours) Vital Signs Temp Pulse Pulse Resp BP Pulse Ox 03/14/19 12:59 70 16 98 03/14/19 11:27 36.5 C 70 18 127/77 92 03/14/19 07:39 37.0 C 76 18 149/65 H 97 03/14/19 07:25 69 Medications Administered Current Inpatient Medications Acetaminophen (Tylenol) 650 mg PO Q4H PRN PRN Reason: Pain or Fever Stop: 04/09/19 20:03 Last Admin: 03/10/19 22:31 Dose: 650 mg Documented by: Albuterol (Duoneb) 3 ml NEB Q2H PRN PRN Reason: Wheezing Stop: 04/12/19 05:33 Last Admin: 03/14/19 12:58 Dose: 3 ml Documented by: Diltiazem HCl (Cardizem Cd) 120 mg PO BID [facility] Stop: 04/09/19 20:59 Last Admin: 03/14/19 09:15 Dose: 120 mg Documented by: Ferrous Sulfate (Feosol) 325 mg PO Q48H [facility] Stop: 04/12/19 12:59 Last Admin: 03/13/19 14:00 Dose: 325 mg Documented by: Fluticasone Propionate (Flonase) 2 sprays NA DAILY [facility] Stop: 04/13/19 05:59 Last Admin: 03/14/19 12:06 Dose: 2 sprays Documented by: Sodium Chloride (Nss) 250 mls @ 15 mls/hr IV .[id number] PRN PRN Reason: For Transfusion Stop: 04/10/19 05:40 Sodium Chloride (Nss) 250 mls @ 15 mls/hr IV .[id number] PRN PRN Reason: For Transfusion Stop: 04/10/19 07:45 Labetalol HCl (Normodyne) 10 mg IV Q1H PRN PRN Reason: Blood Pressure - High Stop: 04/09/19 20:03 Metoprolol Tartrate (Lopressor) 12.5 mg PO BID [facility] Stop: 04/11/19 20:59 Last Admin: 03/14/19 09:16 Dose: 12.5 mg Documented by: Nitroglycerin (Nitrostat) 0.4 mg SL UD PRN PRN Reason: Chest Pain Stop: 04/09/19 20:03 Ondansetron HCl (Zofran) 4 mg IV Q6H PRN PRN Reason: Nausea Stop: 04/09/19 20:03 Last Admin: 03/11/19 09:16 Dose: 4 mg Documented by: Pantoprazole Sodium (Protonix) 40 mg PO BID [facility] Stop: 04/12/19 20:59 Last Admin: 03/14/19 09:15 Dose: 40 mg Documented by: Pravastatin Sodium (Pravachol) 20 mg PO HS [facility] Stop: 04/09/19 20:59 Last Admin: 03/13/19 21:12 Dose: 20 mg Documented by: (1) GI bleed GI bleed type/associated pathology: unspecified gastrointestinal hemorrhage type Qualified Code(s): K92.2 - Gastrointestinal hemorrhage, unspecified (2) Anemia Anemia type: unspecified type Qualified Code(s): D64.9 - Anemia, unspecified (3) Hypertension Hypertension type: unspecified Qualified Code(s): I10 - Essential (primary) hypertension
--- NOTE | 2019-03-14 19:31 | Consultation Report ---
DATE OF CONSULTATION: 03/14/2019 REASON FOR CONSULTATION: Large hiatal hernia. HISTORY OF PRESENT ILLNESS: Jorge Alberto Geller is a 63-year-old inmate who presents with anemia and signs and symptoms consistent with this. He was hospitalized here 4 days ago and has undergone a workup including a cardiology evaluation as well as a gastrointestinal workup and apparently has a history of supraventricular tachycardia. He has no evidence of cardiac disease, otherwise. However, as he has a normal ejection fraction and no evidence of a myocardial infarction, even though that in his history. At any rate, he was anemic and has undergone a workup and was found to have a huge hiatal hernia confirmed with a CT scan as well as an upper endoscopy. He has multiple Don's ulcers which are probably responsible for his anemia. The patient refuses transfusions and his hemoglobin is 7.7 today. It has not really been dropping. It was 7.8 three days ago. He is eating well. He denies any problems swallowing. I reviewed his CT scan done today and this hiatal hernia is huge. It is interesting that his esophagus was normal. PAST MEDICAL HISTORY: 1. Gastroesophageal reflux disease. 2. Personal history of coronary artery disease. 3. Questionable peripheral arterial disease. 4. He has had short of breath. 5. Apparently he has a history of peripheral arterial disease as well as cerebrovascular disease and hypertension. 6. He states he has had multiple MIs, but we do not see evidence of this on the echocardiogram. PAST SURGICAL HISTORY: Herniorrhaphy. MEDICATIONS AT HOME: 1. Aspirin. 2. Pravastatin. 3. Pentoxifylline. 4. Omeprazole. 5. Azelastine. 6. Tyrosine. 7. Diltiazem. 8. Guaifenesin. 9. Xopenex. ALLERGIES: No known drug allergies. SOCIAL HISTORY: The patient smoked in the past, does not smoke now. It is not allowed present. He is incarcerated currently. He does not use alcohol. REVIEW OF SYSTEMS: The patient states his weight has been stable. He has been tired and short of breath. He has not really noted any blood in the stool or really symptoms of gastroesophageal reflux disease, although he has a history of GERD that has been pretty well treated with omeprazole. He does not use NSAIDs because he has been told not to. He had no nausea, vomiting or diarrhea. He did feel some palpitations. He denies chest pain per se. He denies any wound breakdown. He has had no visual or auditory loss. He denies any neurologic events. PHYSICAL EXAMINATION: GENERAL: This is a 5 feet 11 inch, 203 pounds -[place] male who is awake, alert and oriented. HEENT: His sclerae are muddy, but anicteric. His pupils are equal, round and reactive. He is fairly obese. His tongue is midline. He has very poor dentition. NECK: Supple. I do not detect any carotid bruits. He has no thyromegaly or lymphadenopathy. LUNGS: Clear, although he does have some decreased breath sounds at the left base with a few rhonchi. HEART: Regular rate and rhythm of his heart. I detect no significant rub. ABDOMEN: Protuberant, soft, nontender. EXTREMITIES: His extremities are warm and dry. He has no wound breakdown. He has no neurologic issues. He has good pedal pulses. NEUROLOGIC: Completely intact. ASSESSMENT AND PLAN: Large hiatal hernia with symptomatic Don ulcers resulting in anemia. The patient is a candidate for a hiatal hernia repair. However, his hemoglobin is 7.7. He has refused a transfusion. I may offer him a surgery but I would like to see his hemoglobin up a bit more. His lack of symptoms is actually surprising given the magnitude of the hernia. TRESSA
[2019-03-14] MEDS: PRAVASTATIN SOD 20 MG TAB PO SCH (21:12)
[2019-03-15] MEDS: ALBUT/IPRATROP 3MG/0.5MG NEB 3 ML VIAL NEB PRN (04:50)
[2019-03-15 05:59] LABS: Basophils # (auto) 0.03 K/uL (0-0.2); Basophils % (auto) 0.4 %; Eosinophils # (auto) 0.27 K/uL (0-0.5); Eosinophils % (auto) 3.7 %; Hematocrit (blood only) 26.9 % (42-52); Hemoglobin 8.1 g/dL (14.0-18.0); Immature Granulocytes # (auto) 0.01 K/uL (0.00-0.02); Immature Granulocytes % (auto) 0.1 %; Lymphocytes # (auto) 1.97 K/uL (1.2-3.4); Lymphocytes % (auto) 26.8 %; Mean Corpuscular Hemoglobin 23.7 pg (25-34); Mean Corpuscular Hgb Conc 30.1 g/dL (32-36); Mean Corpuscular Volume 78.7 fL (80-100); Mean Platelet Volume 9.8 fL (7.4-10.4); Monocytes # (auto) 0.55 K/uL (0.11-0.59); Monocytes % (auto) 7.5 %; Neutrophils # (auto) 4.52 K/uL (1.4-6.5); Neutrophils % (auto) 61.5 %; Platelet Count 262 K/uL (130-400); RDW Coefficient of Variation 15.8 % (11.5-14.5); RDW Standard Deviation 45.5 fL (36.4-46.3); Red Blood Count 3.42 M/uL (4.7-6.1); White Blood Count 7.35 K/uL (4.8-10.8)
[2019-03-15 06:31] LABS: BUN Creatinine Ratio 11.1 (10-20); Calcium 8.8 mg/dl (8.5-10.1); Creatinine Clr Calc Pharmacy 88.6 ml/min; Est GFR (African American) 80.3; Est GFR (Non-African American) 69.3; Magnesium 2.1 mg/dl (1.8-2.4); Potassium 3.8 mmol/L (3.5-5.1)
[2019-03-15] MEDS: FLUTICASONE PROPIONATE NA SPR 16 GM BTL SCH (09:12)
[2019-03-15] MEDS: dilTIAZem HCL 120 MG CAPCR PO SCH (09:12)
[2019-03-15] MEDS: METOPROLOL TARTRATE 25 MG TAB PO SCH (09:13)
[2019-03-15] MEDS: PANTOprazole 40 MG TAB PO SCH (09:13)
--- NOTE | 2019-03-15 09:57 | Progress Note ---
DATE: 03/15/2019 Mr. Geller was seen today on 03/15/2019. Mr. Geller has a huge hiatal hernia. He also has Don's ulcers. I have explained to him that he was on omeprazole and I would assume that he is probably not going to respond to proton pump inhibitors or H2 blockers as this is not really an acid problem, but a mechanical problem where the stomach crosses the hiatus. At any rate, he has stated that he is not having surgery because it is "dangerous." I think it is unlikely that his stomach would torse. It is important to note that it is huge. It is compressing his left lower lobe. It is causing him blood loss, which has resulted in anemia. At this point, I would like to continue his ferrous sulfate as well as his Protonix and see him back in the office in a month or so to see if his hemoglobin goes up. We had a long talk about this. He understands. He is emphatic that he does not want surgery, but we will address this again when he returns.
--- NOTE | 2019-03-15 10:14 | Cardiology Progress Note ---
Date of Service March 15, 2019 Assessment & Plan (1) SOB (shortness of breath): (2) Anemia: Hemoglobin up to 8.1 today. Stable. Continue iron supplementation. (3) SVT (supraventricular tachycardia): Continue diltiazem CD 120 mg twice daily, and metoprolol tartrate 12-1/2 mg twice daily. Patient has history of "heart attack", but he states he has never had any stents. Given his anemia, I think it is reasonable to remain off of aspirin unt il his hemoglobin improves to a range of 9-10, which time consideration toward resuming aspirin can be made at the [facility]. Patient stable from a cardiac perspective for discharge. Subjective Chief complaint: Follow-up shortness of breath palpitations Subjective: Patient feeling well. Denies any shortness of breath or palpitations at present. Telemetry reveals stable sinus rhythm in the range of 60 bpm without any significant episodes of tachycardia or bradycardia overnight. Review of Systems Review of Systems: All systems reviewed & are unremarkable except as noted in HPI & below Physical Exam Physical Exam: Temp Pulse Resp BP Pulse Ox 36.7 C 77 19 146/87 H 93 03/15/19 07:07 03/15/19 07:07 03/15/19 07:07 03/15/19 07:07 03/15/19 07:07 Constitutional: WD/WN, vitals as above Respiratory: normal respiratory effort, lungs clear to auscultation Cardiovascular: RRR, no murmur, no edema Gastrointestinal (Abdomen): normal bowel sounds, soft, nontender, no hepatosplenomegaly Neurologic: PERRL, EOMI, accommodation nl, no face palsy, no dysarthria Results & Data Vital Signs (Past 12 Hours) Vital Signs Temp Pulse Pulse Resp BP Pulse Ox 03/15/19 07:07 36.7 C 77 19 146/87 H 93 03/15/19 04:50 73 16 96 03/15/19 04:00 36.6 C 68 18 133/84 99 03/15/19 01:14 142/85 H 03/15/19 00:00 84 03/14/19 23:17 37 C 80 169/84 H 97 Laboratory Results CBC 03/15/19 Range/Units 05:39 WBC 7.35 (4.8-10.8) K/uL RBC 3.42 L (4.7-6.1) M/uL Hgb 8.1 L (14.0-18.0) g/dL Hct 26.9 L (42-52) % Plt Count 262 (130-400) K/uL Neut # (Auto) 4.52 (1.4-6.5) K/uL Lymph # (Auto) 1.97 (1.2-3.4) K/uL [place] # (Auto) 0.55 (0.11-0.59) K/uL Eos # (Auto) 0.27 (0-0.5) K/uL Baso # (Auto) 0.03 (0-0.2) K/uL Comprehensive Metabolic Panel 03/15/19 Range/Units 05:39 Sodium 139 (136-145) mmol/L Potassium 3.8 (3.5-5.1) mmol/L Chloride 107 (98-107) mmol/L Carbon Dioxide 28 (21-32) mmol/L BUN 13 (7-18) mg/dl Creatinine 1.13 (0.6-1.4) mg/dl Glucose 117 H (70-99) mg/dl Calcium 8.8 (8.5-10.1) mg/dl Intake and Output 03/14/19 03/15/19 03/15/19 22:59 06:59 14:59 Intake Total 240 / 910 300 / 910 Output Total 200 / 1250 600 / 1250 Balance 40 / -340 -300 / -340 Intake: Oral 240 / 910 300 / 910 Output: Urine 200 / 1250 600 / 1250 Other: Weight 118 kg Medications Administered Current Inpatient Medications Acetaminophen (Tylenol) 650 mg PO Q4H PRN PRN Reason: Pain or Fever Stop: 04/09/19 20:03 Last Admin: 03/10/19 22:31 Dose: 650 mg Documented by: Albuterol (Duoneb) 3 ml NEB Q2H PRN PRN Reason: Wheezing Stop: 04/12/19 05:33 Last Admin: 03/15/19 04:50 Dose: 3 ml Documented by: Diltiazem HCl (Cardizem Cd) 120 mg PO BID [facility] Stop: 04/09/19 20:59 Last Admin: 03/15/19 09:12 Dose: 120 mg Documented by: Ferrous Sulfate (Feosol) 325 mg PO Q48H [facility] Stop: 04/12/19 12:59 Last Admin: 03/13/19 14:00 Dose: 325 mg Documented by: Fluticasone Propionate (Flonase) 2 sprays NA DAILY [facility] Stop: 04/13/19 05:59 Last Admin: 03/15/19 09:12 Dose: 2 sprays Documented by: Sodium Chloride (Nss) 250 mls @ 15 mls/hr IV .[id number] PRN PRN Reason: For Transfusion Stop: 04/10/19 05:40 Sodium Chloride (Nss) 250 mls @ 15 mls/hr IV .[id number] PRN PRN Reason: For Transfusion Stop: 04/10/19 07:45 Labetalol HCl (Normodyne) 10 mg IV Q1H PRN PRN Reason: Blood Pressure - High Stop: 04/09/19 20:03 Metoprolol Tartrate (Lopressor) 12.5 mg PO BID [facility] Stop: 04/11/19 20:59 Last Admin: 03/15/19 09:13 Dose: 12.5 mg Documented by: Nitroglycerin (Nitrostat) 0.4 mg SL UD PRN PRN Reason: Chest Pain Stop: 04/09/19 20:03 Ondansetron HCl (Zofran) 4 mg IV Q6H PRN PRN Reason: Nausea Stop: 04/09/19 20:03 Last Admin: 03/11/19 09:16 Dose: 4 mg Documented by: Pantoprazole Sodium (Protonix) 40 mg PO BID [facility] Stop: 04/12/19 20:59 Last Admin: 03/15/19 09:13 Dose: 40 mg Documented by: Pravastatin Sodium (Pravachol) 20 mg PO HS [facility] Stop: 04/09/19 20:59 Last Admin: 03/14/19 21:12 Dose: 20 mg Documented by: (1) Anemia Anemia type: unspecified type Qualified Code(s): D64.9 - Anemia, unspecified
--- NOTE | 2019-03-15 10:40 | Gastroenterology Progress Note ---
Date of Service March 15, 2019 Assessment & Plan (1) Anemia: (2) Don ulcer: (3) HH (hiatus hernia): 1. Follow up with Dr. Fried as recommended. 2. Continue Protonix 40 mg PO BID. 3. Continue supportive care. Will sign off at this time. If we can be of assistance in the care of this patient again during this hospitalization, please do not hesitate to contact us. Supervising Physician Co-Signing Physician Notes I personally evaluated the patient and agree with the findings and plan as documented by ZACH Huerta. Exam: abd: obese, soft, nt, nd, no hsm Subjective Patient reports feeling well today. H&H has come up to 8.1/26.9 today. No overt GIB symptoms reported. Denies any chest pain but reports ongoing and chronic shortness of breath. Was seen by Dr. Fried who discussed hiatal hernia repair surgery but patient refuses at this time. Continues BID Protonix. Tolerating diet. Denies any n/v or abdominal pain. Review of Systems Review of Systems: All systems reviewed & are unremarkable except as noted in HPI & below Physical Exam Constitutional: WD/WN, vitals as above Eyes: EOM intact bilaterally Respiratory: Auscultation: + wheezes and + bronchial breath sounds Cardiovascular: Rate/Rhythm: regular rate and regular rhythm Heart Sounds: no gallop and no murmur Gastrointestinal (Abdomen): Inspection/Auscultation: normal bowel sounds Pe rcussion/Palpation: abdomen soft; abdomen nontender Skin: no rashes, warm and dry Neurologic: moves all extremities Psychiatric: A+Ox3, euthymic affect Results & Data Vital Signs (Past 12 Hours) Vital Signs Temp Pulse Pulse Resp BP Pulse Ox 03/15/19 08:00 74 03/15/19 07:07 36.7 C 77 19 146/87 H 93 03/15/19 04:50 73 16 96 03/15/19 04:00 36.6 C 68 18 133/84 99 03/15/19 01:14 142/85 H 03/15/19 00:00 84 03/14/19 23:17 37 C 80 169/84 H 97 Laboratory Results Abnormal lab results 03/15/19 03/15/19 Range/Units 05:39 05:39 RBC 3.42 L (4.7-6.1) M/uL Hgb 8.1 L (14.0-18.0) g/dL Hct 26.9 L (42-52) % MCV 78.7 L (80-100) fL MCH 23.7 L (25-34) pg MCHC 30.1 L (32-36) g/dL RDW Coeff of Ruba 15.8 H (11.5-14.5) % Glucose 117 H (70-99) mg/dl PG Care Time/CCT Total # of Minutes Spent Total Time Spent with Patient: Total time spent is greater than 50% in coordination of care (as documented) at patient's floor/unit and/or counseling patient: (1) Anemia Anemia type: unspecified type Qualified Code(s): D64.9 - Anemia, unspecified
--- NOTE | 2019-03-15 11:47 | Hospitalist Progress Note ---
Date of Service March 15, 2019 Assessment & Plan (1) Dyspnea: Present on admission with worsening SOB with exertion for the last few weeks Possible related to anemia vs cardiac etiology Chest x-ray showed cardiomegaly with volume overload and congestive change. Hemoglobin on admission 8.2 and for the last 2 days remains around 7.7 Received Lasix IV on admission Remains stable clinically Continue neb treatment prn No more shortness of breath (2) Abnormal chest xray: Portable chest x-ray shows a left retrocardiac density, possible hiatal hernia. EGD showed large hiatal hernia Appreciate thoracic surgery input and recommendation Will have CT of the chest to evaluate hiatal hernia further CT of the chest did show large hiatal hernia containing the majority of the stomach (3) SVT (supraventricular tachycardia): Developed narrow complex tachyarrhythmia in ED consistent with SVT. Received IV metoprolol in the ER and was back to NSR Tele monitor showed brief brief episodes of Mobitz type I AV block or without sustained bradycardia ECHO showed no wall motion abnormality. EF 60-65% Cardiology on board appreciate input and recommendation Cardizem has been decreased from 240 to 120 mg twice daily Small dose of metoprolol Has not been having any significant bradycardia on monitor No more SVT and or bradyarrhythmias We will continue Cardizem 120 mg twice daily and Toprol-XL 12.5 mg daily (4) GI bleed: Stools heme positive in ED. Microcytosis suggests chronic GI blood loss. Takes aspirin on a regular basis. Hold aspirin. IV pantoprazole. Management as below We will hold aspirin until the hemoglobin is around 9-10 (5) Anemia: Likely secondary to chronic GI blood loss Iron studies showed low iron level, low ferritin Continue to hold aspirin Colonoscopy done yesterday-03/12 showed 10 mm polyp at the recto-sigmoid colon- waiting for pathology result EGD done showed Large hiatal hernia with multiple Don ulcers. Continue current management Hemoglobin remains stable (6) Coronary artery disease: Report that he had 3 MIs in the past that were managed in [place] (2 of 3 [place]) Consent signed to request document from [place] Did not have any stent placement Hold aspirin until active GI bleeding has resolved. Continue statin (7) Cerebrovascular disease: Patient reports history of 2 strokes in the past. No residual deficits. Hold aspirin until GI bleed resolved. Continue statin. Stable (8) Hypertension: Has been prescribed diltiazem, but not taking it recently because he felt that blood pressures running too low. Continue diltiazem CD 120 mg BID. Low dose metoprolol added BP stable (9) Peripheral arterial disease: Hold aspirin and pentoxifylline until GI bleed has resolved. (10) HH (hiatus hernia): EGD showed Large hiatal hernia with multiple Don ulcers GI recommended thoracic surgery eval Will consult thoracic surgeon Dr. Carpenter Appreciate input and recommendation Will have an evaluation in [address] Fried (11) GERD (gastroesophageal reflux disease): Continue PPI. (12) DVT prophylaxis: No anticoagulants because of GI bleeding. SCDs. Ambulate as able. (13) Discharge planning issues: Anticipated return to [facility] under the care of the medical team there. Continue monitor in tele Will be discharged home today Subjective 03/14 The patient was seen and examined in telemetry unit He denies any symptoms except occasional nausea He was noted to have bradycardia last night without any overt symptoms 03/15 Patient was seen and examined in telemetry unit He denies any complaints today He has been feeling a lot better since admission Did not have any more bradyarrhythmias Review of Systems Review of Systems: All systems reviewed and are unremarkable except as noted below Constitutional: + weight gain; no fever and no weight loss Respiratory: no cough and no dyspnea Cardiovascular: no chest pain, no dyspnea at rest, no palpitations and no lightheadedness Gastrointestinal: + bloating and + nausea; no vomiting Integumentary: healed ulcer right ankle Physical Exam Physical Exam: Lying in bed comfortably Constitutional: well developed, well nourished and + obese; no acute distress and not ill appearing Eyes: PERRL, conjunctivae normal, anicteric sclerae ENMT: external ear and nose normal, oropharynx normal Mouth: + dentition abnormality (poor dentition) Neck: trachea midline, no thyromegaly Respiratory: no respiratory distress Auscultation: lungs clear to auscultation bilaterally and + diminished lung sounds Cardiovascular: Rate/Rhythm: regular rate and regular rhythm (slightly irregular) Heart Sounds: no gallop, no murmur and no cardiac rub Vessels: + JVD Extremities: no calf tenderness and no edema Gastrointestinal (Abdomen): Inspection/Auscultation: abdomen normal to inspection and normal bowel sounds Percussion/Palpation: abdomen soft Musculoskeletal: Head/Neck/Chest: neck supple Extremities: strength 5/5 throughout; no cyanosis and no clubbing No acute arthritis in any of the joints Skin: no rashes, warm and dry Neurologic: moves all extremities and + focal motor deficit Psychiatric: Orientation: alert and oriented x 3 Affect: euthymic affect Lymphatic: no cervical lymphadenopathy Results & Data Vital Signs (Past 12 Hours) Vital Signs Temp Pulse Pulse Resp BP Pulse Ox 03/15/19 08:00 74 03/15/19 07:07 36.7 C 77 19 146/87 H 93 03/15/19 04:50 73 16 96 03/15/19 04:00 36.6 C 68 18 133/84 99 03/15/19 01:14 142/85 H 03/15/19 00:00 84 Laboratory Results Short CBC 03/15/19 Range/Units 05:39 WBC 7.35 (4.8-10.8) K/uL Hgb 8.1 L (14.0-18.0) g/dL Hct 26.9 L (42-52) % Plt Count 262 (130-400) K/uL BMP 03/15/19 05:39 Sodium 139 Potassium 3.8 Chloride 107 Carbon Dioxide 28 BUN 13 Creatinine 1.13 Glucose 117 H Calcium 8.8 Medications Administered Current Inpatient Medications Acetaminophen (Tylenol) 650 mg PO Q4H PRN PRN Reason: Pain or Fever Stop: 04/09/19 20:03 Last Admin: 03/10/19 22:31 Dose: 650 mg Documented by: Albuterol (Duoneb) 3 ml NEB Q2H PRN PRN Reason: Wheezing Stop: 04/12/19 05:33 Last Admin: 03/15/19 04:50 Dose: 3 ml Documented by: Diltiazem HCl (Cardizem Cd) 120 mg PO BID [facility] Stop: 04/09/19 20:59 Last Admin: 03/15/19 09:12 Dose: 120 mg Documented by: Ferrous Sulfate (Feosol) 325 mg PO Q48H [facility] Stop: 04/12/19 12:59 Last Admin: 03/13/19 14:00 Dose: 325 mg Documented by: Fluticasone Propionate (Flonase) 2 sprays NA DAILY [facility] Stop: 04/13/19 05:59 Last Admin: 03/15/19 09:12 Dose: 2 sprays Documented by: Sodium Chloride (Nss) 250 mls @ 15 mls/hr IV .[id number] PRN PRN Reason: For Transfusion Stop: 04/10/19 05:40 Sodium Chloride (Nss) 250 mls @ 15 mls/hr IV .[id number] PRN PRN Reason: For Transfusion Stop: 04/10/19 07:45 Labetalol HCl (Normodyne) 10 mg IV Q1H PRN PRN Reason: Blood Pressure - High Stop: 04/09/19 20:03 Metoprolol Tartrate (Lopressor) 12.5 mg PO BID [facility] Stop: 04/11/19 20:59 Last Admin: 03/15/19 09:13 Dose: 12.5 mg Documented by: Nitroglycerin (Nitrostat) 0.4 mg SL UD PRN PRN Reason: Chest Pain Stop: 04/09/19 20:03 Ondansetron HCl (Zofran) 4 mg IV Q6H PRN PRN Reason: Nausea Stop: 04/09/19 20:03 Last Admin: 03/11/19 09:16 Dose: 4 mg Documented by: Pantoprazole Sodium (Protonix) 40 mg PO BID [facility] Stop: 04/12/19 20:59 Last Admin: 03/15/19 09:13 Dose: 40 mg Documented by: Pravastatin Sodium (Pravachol) 20 mg PO HS [facility] Stop: 04/09/19 20:59 Last Admin: 03/14/19 21:12 Dose: 20 mg Documented by: (1) GI bleed GI bleed type/associated pathology: unspecified gastrointestinal hemorrhage type Qualified Code(s): K92.2 - Gastrointestinal hemorrhage, unspecified (2) Anemia Anemia type: unspecified type Qualified Code(s): D64.9 - Anemia, unspecified (3) Hypertension Hypertension type: unspecified Qualified Code(s): I10 - Essential (primary) hypertension
--- NOTE | 2019-03-16 08:16 | Discharge Summary ---
Date of Service March 16, 2019 Admission HPI Per Admitting Provider 63 YO male who is incarcerated at [facility]. History of 3 DC's per patient's history. Details not available. First 2 events were managed at [facility] about 10 years ago. Third episode was about 2 years ago, managed at the group home. Patient states that he never had a cardiac cath or revascularization. History of stroke in the past. Details not available. Other medical problems include hypertension, peripheral vascular disease, GERD. Former 2 PPD smoker. Experiencing dyspnea on exertion over past 2 months, recently worse. Sometimes dyspnea associated with mild substernal chest pain; sometimes with palpitations. Occasional cough, sometimes productive of white sputum. Has had intermittent palpitations for some time. Prescribed diltiazem, but felt that current dose of 240 mg daily was too much and he has not taken it for some time. Takes aspirin 81 mg daily because of history of ischemic heart disease and stroke. Takes a couple extra aspirins when he experiences palpitations which seems to help. Chest x-ray at [facility] on 03/06/19 showed normal cardiac silhouette, pulmonary vascular congestion, retrocardiac density felt to be consistent with hiatal hernia. Brought to ED today because of worsening dyspnea on exertion. No chest pain. No fever. Cough unchanged. Cardiac rhythm in ED initially was sinus tachycardia. BP was elevated. Patient received IV labetalol. Subsequently developed narrow complex tachycardia @ 130 / min consistent with SVT. Received metoprolol 5 mg IV and converted to sinus rhythm. Admission Exam Per Admitting Provider Constitutional: + weight gain; no fever and no weight loss Ear, Nose, Mouth, Throat: no sore throat Respiratory: as per Subjective / HPI Cardiovascular: as per Subjective / HPI Gastrointestinal: no nausea, no vomiting, no constipation, no diarrhea/loose stools, no blood in stools and no melena Musculoskeletal: no joint pain and no myalgia Integumentary: healed ulcer right ankle Neurologic: no headache(s) Endocrine: no polydipsia and no polyuria Hematologic / Lymphatic: no easy bleeding, no easy bruising and no lymphadenopathy Principal Diagnosis Anemia secondary to GI blood loss due to Don ulcers, SVT, huge hiatal hernia Discharge Exam Constitutional well developed, well nourished and + obese; no acute distress and not ill appearing Eyes PERRL, conjunctivae normal, anicteric sclerae ENMT external ear and nose normal, oropharynx normal Mouth: + dentition abnormality (poor dentition) Neck trachea midline, no thyromegaly Respiratory no respiratory distress Auscultation: lungs clear to auscultation bilaterally and + diminished lung so unds Cardiovascular Rate/Rhythm: regular rate and regular rhythm (slightly irregular) Heart Sounds: no gallop, no murmur and no cardiac rub Vessels: + JVD Extremities: no calf tenderness and no edema Gastrointestinal (Abdomen) Inspection/Auscultation: abdomen normal to inspection and normal bowel sounds Percussion/Palpation: abdomen soft Musculoskeletal Head/Neck/Chest: neck supple Extremities: strength 5/5 throughout; no cyanosis and no clubbing Skin no rashes, warm and dry Neurologic moves all extremities and + focal motor deficit Psychiatric Orientation: alert and oriented x 3 Affect: euthymic affect Lymphatic no cervical lymphadenopathy Discharge Data Allergies Allergy/AdvReac Type Severity Reaction Status Date / Time No Known Allergies Allergy Unverified 03/10/19 16:11 Consultations 03/10/19 17:49 ED Decision to Admit Stat 03/11/19 07:00 Consult Cardiology Routine Consult Gastroenterology Routine 03/11/19 17:44 HIM [Consult Health Information Management] Routine 03/13/19 18:45 Consult Thoracic Surgery Routine Procedures Performed Operation Date: 03/12/19 09:30 Actual Procedures p Colonoscopy Polypectomy - Terrance De La Fuente Case, DO s Esophagogastroduodenoscopy - Terrance De La Fuente Case, DO Ordered Studies 03/14/19 13:31 CT chest wo con Routine Hospital Course (1) Dyspnea: Present on admission with worsening SOB with exertion for the last few weeks Possible related to anemia vs cardiac etiology Chest x-ray showed cardiomegaly with volume overload and congestive change. Hemoglobin on admission 8.2 and for the last 2 days remains around 7.7 Received Lasix IV on admission Remains stable clinically Continue neb treatment prn No more shortness of breath (2) Abnormal chest xray: Portable chest x-ray shows a left retrocardiac density, possible hiatal hernia. EGD showed large hiatal hernia Appreciate thoracic surgery input and recommendation Will have CT of the chest to evaluate hiatal hernia further CT of the chest did show large hiatal hernia containing the majority of the stomach (3) SVT (supraventricular tachycardia): Developed narrow complex tachyarrhythmia in ED consistent with SVT. Received IV metoprolol in the ER and was back to NSR Tele monitor showed brief brief episodes of Mobitz type I AV block or without daley stained bradycardia ECHO showed no wall motion abnormality. EF 60-65% Cardiology on board appreciate input and recommendation Cardizem has been decreased from 240 to 120 mg twice daily Small dose of metoprolol Has not been having any significant bradycardia on monitor No more SVT and or bradyarrhythmias We will continue Cardizem 120 mg twice daily and Toprol-XL 12.5 mg daily (4) GI bleed: Stools heme positive in ED. Microcytosis suggests chronic GI blood loss. Takes aspirin on a regular basis. Hold aspirin. IV pantoprazole. Management as below We will hold aspirin until the hemoglobin is around 9-10 (5) Anemia: Likely secondary to chronic GI blood loss Iron studies showed low iron level, low ferritin Continue to hold aspirin Colonoscopy done yesterday-03/12 showed 10 mm polyp at the recto-sigmoid colon- waiting for pathology result EGD done showed Large hiatal hernia with multiple Don ulcers. Continue current management Hemoglobin remains stable (6) Coronary artery disease: Report that he had 3 MIs in the past that were managed in [place] (2 of 3 DC) Consent signed to request document from [place] Did not have any stent placement Hold aspirin until active GI bleeding has resolved. Continue statin (7) Cerebrovascular disease: Patient reports history of 2 strokes in the past. No residual deficits. Hold aspirin until GI bleed resolved. Continue statin. Stable (8) Hypertension: Has been prescribed diltiazem, but not taking it recently because he felt that blood pressures running too low. Continue diltiazem CD 120 mg BID. Low dose metoprolol added BP stable (9) Peripheral arterial disease: Hold aspirin and pentoxifylline until GI bleed has resolved. (10) HH (hiatus hernia): EGD showed Large hiatal hernia with multiple Don ulcers GI recommended thoracic surgery eval Will consult thoracic surgeon Dr. Carpenter Appreciate input and recommendation Will have an evaluation in [address] Fried (11) GERD (gastroesophageal reflux disease): Continue PPI. (12) DVT prophylaxis: No anticoagulants because of GI bleeding. SCDs. Ambulate as able. (13) Discharge planning issues: Anticipated return to [facility] under the care of the medical team there. Continue monitor in tele Will be discharged home today Total Time Total Time Spent Total Time Spent (In Minutes): 35 minutes Total Time Includes: Examination of the Patient, Discharge Planning, Medication Reconciliation and Communication With Other Providers Discharge Plan Discharge Items [facility] Disposition: [facility] Reason For Visit: ANEMIA,ARRHYTHMIA Discharge Diagnosis: Anemia secondary to GI blood loss due to Don ulcers, SVT, huge hiatal hernia Condition on Discharge: Good Activity: Resume your previous activity Non-emergency contact: Primary Care Provider Call non-emergency contact if: you have any medication questions and your symptoms worsen Follow-up/Referrals: Wilbur Fried MD, FACS [Surgeon] - (Please make an appointment with Dr. Anderson in 1 month) Derrell BLANTON [Primary Care Provider] - (Keep appointment with your car diologist) Diet: Heart Healthy Addtl Attending Provider Instructions: Continue medications as prescribed New and changed medications; Diltiazem HCl has been decreased to 120 mg twice daily Metoprolol tartrate 12.5 mg daily has been added Protonix 40 mg twice daily and ferrous sulfate as directed His aspirin will be on hold until his hemoglobin comes of around 9-10 and then it can be restarted Pending Studies at Discharge: No Stand-Alone Forms: My [facility] Jay Zecco Skilled Items Patient informed of condition?: Yes Discharge Level of Care: Other Communicable Disease: No Discharge Prognosis: Stable Lines: None Urinary Catheter: No Medications and DC Order Prescriptions: New pantoprazole 40 mg Tablet,Delayed Release (Dr/Ec) 40 mg PO BID 30 Days Qty: 60 RF: 0 diltiazem HCl 120 mg Capsule,Extended Release 24hr 120 mg PO BID 30 Days Qty: 60 RF: 0 ferrous sulfate 325 mg (65 mg iron) Tablet,Delayed Release (Dr/Ec) 325 mg PO Q48H 30 Days Qty: 15 RF: 0 metoprolol tartrate 25 mg Tablet 12.5 mg PO BID 30 Days Qty: 30 RF: 0 Continued cetirizine 10 mg Tablet 10 mg PO DAILY RF: 0 pentoxifylline 400 mg Tablet Extended Release 400 mg PO TID RF: 0 pravastatin 20 mg Tablet 20 mg PO HS RF: 0 azelastine 137 mcg (0.1 %) Aerosol,[place] 2 spray INTRANASAL BID RF: 0 cholecalciferol (vitamin D3) [Vitamin D3] 400 unit Tablet 400 unit PO DAILY RF: 0 guaifenesin [Mucosa] 400 mg Tablet 400 mg PO BID PRN (Reason: drainage) RF: 0 levalbuterol tartrate [Xopenex HFA] 45 mcg/actuation Hfa Aerosol Inhaler 1 puff INHALATION Q6H PRN (Reason: Shortness Of Breath) RF: 0 Discontinued aspirin [Aspir-81] 81 mg Tablet,Delayed Release (Dr/Ec) 81 mg PO DAILY RF: 0 omeprazole 20 mg Capsule,Delayed Release(Dr/Ec) 20 mg PO DAILY RF: 0 diltiazem HCl 240 mg Tablet Extended Release 24 Hr 240 mg PO DAILY RF: 0 Discharge Orders: Discharge Order (Routine); Ordered 03/15/19 Ordered By: Deborah Cassidy Admission Data Admit Date/Time: 03/10/19 17:57 Attending Provider: Deborah Cassidy Admit Provider: John Luna Primary Care Provider: Derrell BLANTNO Other Providers: John Luna ; Alexander Ruiz ; Terrance Bell ; Wilbur Fried ; Sofia Murrell Other Interventions: Discharge Summary Assessment (RN) Last Done: 03/15/19 12:13 DC Date/Time DO NOT enter until pt leaves facility: 03/15/19 14:00
== END 2019-03-15 14:00 | DRG 378 ==
LOC: EDBD → ED 14:59 → 2S 17:57 → SUATTDRO 17:57 → 2S 18:52